=== PATIENT | female | born 1985 | race Caucasian/White ===

== ENCOUNTER 2019-07-16 11:40 | Emergency (ER) | payer MEDICAID, SELFPAY ==
[2019-07-16 11:44] VITALS: BMI 42.5
--- NOTE | 2019-07-16 11:48 | XR_ITS ---
WS: [id number] XR chest 1V portable [id number] REASON FOR EXAM: Fever and URI symptoms FINDINGS: The cardiac silhouette was normal. The lung hatch are well aerated. No pneumonia, pleural effusion, pulmonary edema, or mass effect. No osseous abnormalities. The hilum and apices are normal. XR/XR chest 1V portable [id number] IMPRESSION: No active cardiopulmonary changes.
[2019-07-16 11:49] VITALS: BP 129/97; PULSE 87; RESP 18; TEMP 36.4; O2SAT 97
--- NOTE | 2019-07-16 12:22 | W.ED.GENADLT ---
Documented by User: CHARLOTTE Dean 07/16/19 15:05 HPI - General Adult General: Chief complaint: General Medical Stated complaint: fever Time Seen by Provider: 07/16/19 11:45 History of Present Illness: HPI narrative: Patient is a 34-year-old female comes to the ED with a sore throat and generalized body aches. Patient states that symptoms started yesterday. She also has had fever and chills last night. Denies any chest pain, shortness of breath, cough, ear pain, nasal drainage or congestion, abdominal pain, nausea, vomiting, diarrhea, constipation, dysuria, hematuria. Associated symptoms: Deny chest pain, dyspnea, headache(s), nausea, rash, palpitations or vomiting Review of Systems General: Reports: 10 or more systems reviewed and unremarkable except in HPI and below Const: Reports: fever and body aches; Denies: chills or fatigue Eyes: Denies: change in vision or eye discomfort ENMT: Reports: throat pain and painful swallowing; Denies: nasal discharge or nasal congestion Card: Denies: chest pain, palpitations, edema, swelling of feet/ankles, shortness of breath on exertion or shortness of breath when lying down Resp: Denies: shortness of breath, productive cough or non-productive cough GI: Denies: abdominal pain, nausea, vomiting, diarrhea, constipation or blood in stool : Denies: flank pain, painful urination or blood in urine Musc: Denies: neck pain, back pain or extremity swelling Skin/Breast: Denies: rash or new lesion Neuro: Denies: headache, numbness in extremities or weakness in extremities PFS ED PFSH: Social History Smoking and tobacco status: never smoked Female Reproductive History: Date of last menstrual period: 06/20/19 Physical Exam Narrative: EXAM NARRATIVE: Patient is a 34-year-old female who is sitting comfortably in exam than on the room. She is showing no signs of acute respiratory distress or pain. Const: COMMON NORMALS: oriented x3 HENMT: COMMON NORMALS: normocephalic and TM's normal bilaterally HEAD & SCALP: normocephalic TYMPANIC MEMBRANE: TM's normal bilaterally MOUTH: oral and palatal mucosa normal THROAT: uvula midline, tonsils abnormal (swollen) left and posterior oropharynx abnormal edema and erythema; no exudates Neck/C-Spine: COMMON NORMALS: supple GENERAL: Yes normal visual inspection Lymph: LYMPHATIC: no lymphadenopathy noted Resp: COMMON NORMALS: normal respiratory effort, no retractions, no use of accessory muscles and clear to auscultation bilaterally AUSCULTATION: clear to auscultation bilaterally Cardio: COMMON NORMALS: regular rate, regular rhythm, S1 normal heart sound, S2 normal heart sound, no gallops, no clicks, no murmurs and peripheral pulses 2+ throughout RATE: regular rate RHYTHM: regular rhythm HEART SOUNDS: S1 normal and S2 normal PERIPHERAL PULSES: pulses 2+ throughout GI: COMMON NORMALS: normal to inspection, nondistended, normoactive bowel sounds, soft to palpation, non-tender and no masses PALPATION: Yes soft : COMMON NORMALS: Yes no CVA tenderness BLADDER/KIDNEY EXAM: Yes no CVA tenderness Back/Pelvis: COMMON NORMALS: no CVA tenderness Extremity: COMMON NORMALS: normal to inspection Neuro: COMMON NORMALS: oriented x3 and moves all extremities Skin: COMMON NORMALS: no rashes or lesions noted GENERAL SKIN EXAM: no rashes or lesions noted and dry skin Course Vital Signs: Vital signs: Vital Signs Temperature 97.6 F 07/16/19 13:46 Pulse Rate 87 07/16/19 14:46 Respiratory Rate 16 07/16/19 14:46 Blood Pressure 133/94 07/16/19 14:46 Pulse Oximetry 98 07/16/19 14:46 MDM - General Adult Lab Data: Attestation: I reviewed the patient's lab results. Labs: Lab Results 07/16/19 07/16/19 07/16/19 Range/Units 12:03 12:03 13:58 Monoscreen Negative (Negative) Influenza Type A A g Negative (Negative) POC Influenza B Ag Negative (Negative) Group A Strep Rapi d Negative (Negative) Imaging Data^: CXR: Attestation: I personally reviewed and interpreted this imaging study as follows: Radiologist's impression: [address] [address] XRay Report Signed Patient: Luz Lester Unit #: [id number] : 1985 Age/Sex: 34 / F ADM Date: 07/16/19 Loc: ER Room/Bed: Attending Dr: Ordering Provider/Ordering MD: Roel Walden Date of Service: 07/16/19 Procedure(s): XR chest 1V portable [id number] Accession Number(s): [id number] Report Number: [id number] WS: [id number] XR chest 1V portable [id number] REASON FOR EXAM: Fever and URI symptoms FINDINGS: The cardiac silhouette was normal. The lung hatch are well aerated. No pneumonia, pleural effusion, pulmonary edema, or mass effect. No osseous abnormalities. The hilum and apices are normal. XR/XR chest 1V portable [id number] IMPRESSION: No active cardiopulmonary changes. Dictated By: Robbi Erickson DO Signed By: Robbi Erickson DO Signed Date/Time: 07/16/19 120 DD/ 120 Discharge Plan Discharge Patient Disposition: Home, Self-Care Clinical Impression: Pharyngitis with viral syndrome Condition: Stable Prescriptions: No Action Midol 500-25 mg Tablet 1 tab PO PRN RF: 0 Discharge Orders: Discharge Order (Routine); Ordered 07/16/19 Ordered By: Roel Walden Referrals: Yareli Lozano DO [Primary Care Provider] - Discharge Diet: Regular Discharge Activity: Resume usual activity Patient Instructions: Pharyngitis (ED) Activity Restrictions/Additional Instructions: Follow-up with PCP in 7 days for reevaluation. Take ibuprofen or Tylenol for fever control. Drink plenty of fluids and stay hydrated. For sore throat can gargle salt water to help relieve symptoms. Return to the ED for any emergent problems. Discharge Date/Time: 07/16/19 14:47 Coding Level of Care Code ED Apartment Property Manager for Chg Fwd Exam Comprehensive Documented by User: Estella Martinez MD, [facility] [place] 07/16/19 23:59 HPI - General Adult General: Chief complaint: General Medical Stated complaint: fever Time Seen by Provider: 07/16/19 11:45 PFSH ED PFSH: Social History Smoking and tobacco status: never smoked Course Vital Signs: Vital signs: Vital Signs Temperature 97.6 F 07/16/19 13:46 Pulse Rate 87 07/16/19 14:46 Respiratory Rate 16 07/16/19 14:46 Blood Pressure 133/94 07/16/19 14:46 Pulse Oximetry 98 07/16/19 14:46 MDM - General Adult Lab Data: Labs: Lab Results 07/16/19 07/16/19 07/16/19 Range/Units 12:03 12:03 13:58 Monoscreen Negative (Negative) Influenza Type A A g Negative (Negative) POC Influenza B Ag Negative (Negative) Group A Strep Rapi d Negative (Negative) Discharge Plan Discharge Patient Disposition: Home, Self-Care Clinical Impression: Pharyngitis with viral syndrome Condition: Stable Prescriptions: No Action Midol 500-25 mg Tablet 1 tab PO PRN RF: 0 Discharge Orders: Discharge Order (Routine); Ordered 07/16/19 Ordered By: Roel Walden Referrals: Yareli Lozano DO [Primary Care Provider] - Discharge Diet: Regular Discharge Activity: Resume usual activity Patient Instructions: Pharyngitis (ED) Activity Restrictions/Additional Instructions: Follow-up with PCP in 7 days for reevaluation. Take ibuprofen or Tylenol for fever control. Drink plenty of fluids and stay hydrated. For sore throat can gargle salt water to help relieve symptoms. Return to the ED for any emergent problems. Discharge Date/Time: 07/16/19 14:47 Coding Level of Care Code ED Apartment Property Manager for Moog Fwd Exam Comprehensive
[2019-07-16 12:41] LABS: Rapid Strep A Test Negative (Negative)
[2019-07-16 12:55] LABS: Influenza A by IFA Negative (Negative)
[2019-07-16 12:56] LABS: Influenza B by IFA Negative (Negative)
[2019-07-16 13:46] VITALS: BP 144/97; PULSE 77; TEMP 36.4; O2SAT 99
[2019-07-16 14:18] LABS: Monoscreen Negative (Negative)
[2019-07-16 14:46] VITALS: BP 133/94; PULSE 87; RESP 16; O2SAT 98
== END 2019-07-16 14:47 | disposition home or self-care (01) ==
PROVIDERS: Emergency Provider Physician Assistant; Family Provider Family Medicine; PCP Family Medicine
DX: J02.9 Acute pharyngitis, unspecified (principal); B34.9 Viral infection, unspecified
CPT/HCPCS: 36415; 71045; 86308; 87081; 87804; 87880; 99282; 99283

== ENCOUNTER → 2019-12-07 14:08 | Outpatient (BNVA) | payer MEDICAID, SELFPAY | PROVIDERS: Family Provider Family Medicine; PCP Nurse Practitioner; Visit Provider Nurse Practitioner Women's Health | DX: N93.9 Abnormal uterine and vaginal bleeding, unspecified (principal); Z13.1 Encounter for screening for diabetes mellitus; Z12.4 Encounter for screening for malignant neoplasm of cervix | CPT/HCPCS: 83036; 84443; 84702; 85025; 88175 ==

== ENCOUNTER → 2019-12-12 14:43 | Outpatient (BNVA) | payer MEDICAID, SELFPAY | PROVIDERS: Family Provider Family Medicine; PCP Nurse Practitioner; Visit Provider Nurse Practitioner Women's Health | DX: N92.0 Excessive and frequent menstruation with regular cycle (principal); N83.02 Follicular cyst of left ovary; N83.01 Follicular cyst of right ovary | CPT/HCPCS: 76830 ==

== ENCOUNTER → 2020-06-21 11:41 | Outpatient (BNVA) | payer BC, MEDICAID, SELFPAY | PROVIDERS: Family Provider Family Medicine; PCP Nurse Practitioner; Visit Provider Nurse Practitioner Family | DX: J02.9 Acute pharyngitis, unspecified (principal); J06.9 Acute upper respiratory infection, unspecified | CPT/HCPCS: 87071; 87880 ==

== ENCOUNTER 2020-08-01 17:55 | Emergency (ER) | payer BC, MEDICAID, SELFPAY ==
[2020-08-01 18:03] VITALS: BP 161/103; PULSE 100; RESP 18; TEMP 36.2; O2SAT 100; BMI 41.3
--- NOTE | 2020-08-01 18:14 | ECG_ITS ---
[facility] Test Date: 2020-08-01 Pat Name: Luz Lester Department: Room: Gender: Female Net Mvc Developer: : 1985 Requested By: Stephanie Jacobs Order Number: [id number] Patric MD: Dwayne Bender M.D. Measurements Intervals [place] Rate: 89 P: 57 AK: 159 QRS: 64 QRSD: 97 T: 48 QT: 359 QTc: 439 Interpretive Statements SINUS RHYTHM INDETERMINATE AXIS INCOMPLETE RIGHT BUNDLE BRANCH BLOCK [90+ ms QRS DURATION, TERMINAL R IN V1/V2, 40+ ms S IN I/aVL/V4/V5/V6] Compared to ECG 08/31/2017 20:00:10 Indeterminate axis now present Incomplete right bundle-branch block now present Electronically Signed On 08-01-2020 20:56:54 COMPRESSOR STATION OPERATOR by Dwayne Bender M.D. [id number]
--- NOTE | 2020-08-01 18:14 | CTR_ITS ---
PROCEDURE INFORMATION: Exam: CT Head Without Contrast Exam date and time: 08/01/2020 6:15 PM Age: 35 years old Clinical indication: Other: Weakness TECHNIQUE: Imaging protocol: Computed tomography of the head without contrast. Total images: 198 Radiation optimization: All CT scans at this facility use at least one of these dose optimization techniques: automated exposure control; mA and/or kV adjustment per patient size (includes targeted exams where dose is matched to clinical indication); or iterative reconstruction. COMPARISON: No relevant prior studies available. RADIATION DOSE METRICS: Total DLP (mGy-cm): 799.76 FINDINGS: Brain: Normal. No hemorrhage. Unremarkable white matter. No mass effect. Cerebral ventricles: No ventriculomegaly. Bones/joints: Unremarkable. No acute fracture. Paranasal sinuses: Visualized sinuses are unremarkable. No fluid levels. Mastoid air cells: Visualized mastoid air cells are well aerated. Soft tissues: Unremarkable. CT/CT head wo con* [id number] IMPRESSION: No acute intracranial abnormality. Radiation Dose CTDIVOL = (mGy): DLP = 799.76 (mGy-cm)
--- NOTE | 2020-08-01 18:27 | W.ED.WEAKNES ---
HPI - Weakness General: Chief complaint: Weakness Stated complaint: SHAKING Time Seen by Provider: 08/01/20 18:09 Source: patient Mode of arrival: ambulatory Limitations: no limitations History of Present Illness: HPI Narrative: 35-year-old female who states today at 1 she is started feeling weak and shaky. She states that she went to her kids and was feeling better and then started having weakness again 330. States she is getting tics where she shakes and has tremors. She denies any headache. Denies any worsening peripheral factors. She denies any difficulty walking. She has had no difficulty speaking. Associated symptoms: Denies chest pain, chills, dysuria, easy bruising, fever(s), nausea or vomiting Review of Systems Const: Denies: fever(s), chills, body aches or change in appetite Eyes: Denies: blurry vision or eye discomfort ENMT: Denies: throat pain or dental pain Card: Denies: chest pain Resp: Denies: dyspnea GI: Denies: abdominal pain, nausea, vomiting or diarrhea : Denies: dysuria Musc: Denies: neck pain or back pain Skin/Breast: Denies: rash Neuro: Reports: weakness in extremities Psych: Denies: depression Brown/Lymph: Denies: easy bruising All/Imm: Denies: urticaria PFSH ED PFSH: Medical History (Updated 08/01/20 @ 20:21 by Stephanie Jacobs MD) History of hypertension Hypersomnia Low grade squamous intraepithelial lesion on cytologic smear of cervix (LGSIL) Muscle tension headache Obesity, morbid, BMI 40.0-49.9 Prediabetes Surgical History H/O section 1--04/25/[address] Peter Thompson at [facility] in [place], [place] 2-- 03/25/[address] Tristan Mcknight at [facility] in [place], [place] H/O tubal ligation (~03/25/11) Performed at time of section History of cholecystectomy (~07/2009) Laparoscopic. Performed at [facility] in [place], [place] Family History (Updated 04/17/20 @ 09:08 by Ioana Posadas LPN) Father Diabetes Hyperlipidemia Hypertension Grandfather No problems noted. Grandmother Hyperlipidemia Paternal grandmother Hypertension Paternal grandmother Diabetes Paternal grandmother Family/Other Family history of thyroid problem Paternal aunt Breast cancer Paternal great aunt Thyroid cancer Lung cancer Throat cancer Other Ovarian cancer Social History (Updated 04/17/20 @ 09:04 by Ioana Posadas LPN) Smoking and tobacco status: never smoked Alcohol intake: never Marital status: Number of children: 2 Current occupational status: unemployed Current gender identity: Female Additional social history: - Tobacco use: Denies Alcohol use: Denies Drug use: Denies Female Reproductive History: Date of last menstrual period: 06/20/19 Physical Exam Const: COMMON NORMALS: no acute distress, patient oriented x3 and healthy appearing HENMT: COMMON NORMALS: normocephalic and atraumatic HEAD & SCALP: normocephalic and atraumatic Eye: COMMON NORMALS: Equal, round and reactive pupils present and EOMs intact bilaterally PUPIL: Yes Equal, round and reactive pupils present Neck/C-Spine: COMMON NORMALS: full ROM and supple Chest: COMMONS NORMALS: normal inspection of the chest and normal palpation of entire chest wall Resp: COMMON NORMALS: normal respiratory effort, No retractions, No use of accessory muscles and clear to auscultation bilaterally AUSCULTATION: clear to auscultation bilaterally Cardio: COMMON NORMALS: regular rate, regular rhythm and No murmurs present (Cardio) RATE: regular rate RHYTHM: regular rhythm GI: COMMON NORMALS: Normal to inspection, nondistended, normoactive bowel sounds present, Soft to palpation, non-tender and no masses PALPATION: Yes Soft to palpation Extremity: COMMON NORMALS: normal to inspection and full ROM Neuro: COMMON NORMALS: patient oriented x3, moves all extremities and no focal motor deficits Psych: COMMON NORMALS: mental status grossly normal, Normal thought process present and cooperative THOUGHT PROCESS: Normal thought process present Skin: COMMON NORMALS: no rashes or lesions noted and no wounds GENERAL SKIN EXAM: no rashes or lesions noted Course Vital Signs: Vital signs: Vital Signs Temperature 97.1 F L 08/01/20 18:03 Pulse Rate 89 08/01/20 20:54 Respiratory Rate 18 08/01/20 20:54 Blood Pressure 145/99 08/01/20 20:54 Pulse Oximetry 98 08/01/20 20:54 MDM - Weakness MDM Narrative: Medical decision making narrative: Patient presents here with generalized weakness. She is well-appearing here and blood work and CT head are normal. She has no focal deficits and no signs of a stroke. Patient is stable for discharge and is to follow-up with PCP and return if worsening. Lab Data: Labs: Lab Results 08/01/20 08/01/20 08/01/20 Range/Units 18:37 18:37 19:30 WBC 11.6 H (4.0-10.0) 10^3/ uL RBC 4.69 (4.1-5.3) 10^6/u L Hgb 12.6 (11.5-15.3) g/dL Hct 40.0 (37.0-47.0) % MCV 85.3 (81-99) fL MCH 26.9 L (28.0-34.0) pg MCHC 31.5 (30.0-36.0) g/dL RDW 14.3 (12.1-15.1) % Plt Count 440 H (130-400) 10^3/c mm MPV 9.4 (7.4-10.4) fL Neut % (Auto) 70.3 % Lymph % (Auto) 17.8 % [place] % (Auto) 8.4 % Eos % (Auto) 1.7 % Baso % (Auto) 1.0 % Neut # (Auto) 8.14 H (1.8-7.7) 10^3/u L Lymph # (Auto) 2.1 (0.8-4.8) 10^3/u L [place] # (Auto) 1.0 H (0.2-0.9) 10^3/u L Eos # (Auto) 0.2 (0.0-0.8) 10^3/u L Baso # (Auto) 0.1 (0.0-0.1) 10^3/u L Nucleated RBC % (a uto) 0 % Nucleated RBCs # 0.0 /100WBC Sodium 138 (136-145) mmol/L Potassium 3.7 (3.5-5.1) mmol/L Chloride 102 (98-107) mmol/L Carbon Dioxide 25 (22-29) mmol/L Anion Gap 14.7 (5-19) BUN 8 (6-20) mg/dL Creatinine 0.7 (0.5-0.9) mg/dL GFR Calculation 95.2 (90-130) mL/min Glucose 115 (65-115) mg/dL Calculated Osmolal ity 285 (285-295) mOsm/k g Calcium 9.3 (8.5-10.5) mg/dL Total Bilirubin 0.2 (0.15-1.2) mg/dL AST 27 (0-32) U/L ALT 41 H (0-33) U/L Alkaline Phosphata se 71 (35-105) IU/L Total Protein 7.7 (6.6-8.7) g/dL Albumin 4.3 (3.5-5.2) g/dL Globulin 3.4 (1.3-4.6) g/dL HCG, Qual Negative (Negative) Urine Color (Yellow) Urine Appearance (CLEAR) Urine pH (5-7) Ur Specific Gravit y (1.005-1.030) Urine Protein (Negative) Urine Glucose (UA) (Normal) Urine Ketones (Negative) Urine Blood (Negative) Urine Nitrate (Negative) Urine Bilirubin (Negative) Urine Urobilinogen (Negative) mg/dL Ur Leukocyte Mariah ase (Negative) Urine RBC (0-2) /hpf Urine WBC (0-5) /hpf Ur Squamous Epith Cells (0-5) /hpf Amorphous Sediment Urine Bacteria (NONE) /hpf 08/01/20 Range/Units 19:30 WBC (4.0-10.0) 10^3/ uL RBC (4.1-5.3) 10^6/u L Hgb (11.5-15.3) g/dL Hct (37.0-47.0) % MCV (81-99) fL MCH (28.0-34.0) pg MCHC (30.0-36.0) g/dL RDW (12.1-15.1) % Plt Count (130-400) 10^3/c mm MPV (7.4-10.4) fL Neut % (Auto) % Lymph % (Auto) % [place] % (Auto) % Eos % (Auto) % Baso % (Auto) % Neut # (Auto) (1.8-7.7) 10^3/u L Lymph # (Auto) (0.8-4.8) 10^3/u L [place] # (Auto) (0.2-0.9) 10^3/u L Eos # (Auto) (0.0-0.8) 10^3/u L Baso # (Auto) (0.0-0.1) 10^3/u L Nucleated RBC % (a uto) % Nucleated RBCs # /100WBC Sodium (136-145) mmol/L Potassium (3.5-5.1) mmol/L Chloride (98-107) mmol/L Carbon Dioxide (22-29) mmol/L Anion Gap (5-19) BUN (6-20) mg/dL Creatinine (0.5-0.9) mg/dL GFR Calculation (90-130) mL/min Glucose (65-115) mg/dL Calculated Osmolal ity (285-295) mOsm/k g Calcium (8.5-10.5) mg/dL Total Bilirubin (0.15-1.2) mg/dL AST (0-32) U/L ALT (0-33) U/L Alkaline Phosphata se (35-105) IU/L Total Protein (6.6-8.7) g/dL Albumin (3.5-5.2) g/dL Globulin (1.3-4.6) g/dL HCG, Qual (Negative) Urine Color Straw (Yellow) Urine Appearance Clear (CLEAR) Urine pH 7 (5-7) Ur Specific Gravit y 1.005 (1.005-1.030) Urine Protein Neg (Negative) Urine Glucose (UA) Norm (Normal) Urine Ketones Negative (Negative) Urine Blood 2+ H (Negative) Urine Nitrate Negative (Negative) Urine Bilirubin Neg (Negative) Urine Urobilinogen Norm (Negative) mg/dL Ur Leukocyte Mariah ase Negative (Negative) Urine RBC 5-10 H (0-2) /hpf Urine WBC None (0-5) /hpf Ur Squamous Epith Cells 0-4 H (0-5) /hpf Amorphous Sediment Not Reportable Urine Bacteria Trace (NONE) /hpf Imaging Data^: CT Head: Attestation: I personally reviewed and interpreted this imaging study as follows: Radiologist's impression: [address] [address] [address] Scan Report Signed Patient: Luz Lesetr Unit #: [id number] : 1985 Age/Sex: 35 / F ADM Date: 08/01/20 Loc: ER Room/Bed: Attending Dr: Ordering Provider/Ordering MD: Stephanie Jacobs MD Date of Service: 08/01/20 Procedure(s): CT head wo con* [id number] Accession Number(s): [id number] Report Number: [id number] PROCEDURE INFORMATION: Exam: CT Head Without Contrast Exam date and time: 08/01/2020 6:15 PM Age: 35 years old Clinical indication: Other: Weakness TECHNIQUE: Imaging protocol: Computed tomography of the head without contrast. Total images: 198 Radiation optimization: All CT scans at this facility use at least one of these dose optimization techniques: automated exposure control; mA and/or kV adjustment per patient size (includes targeted exams where dose is matched to clinical indication); or iterative reconstruction. COMPARISON: No relevant prior studies available. RADIATION DOSE METRICS: Total DLP (mGy-cm): 799.76 FINDINGS: Brain: Normal. No hemorrhage. Unremarkable white matter. No mass effect. Cerebral ventricles: No ventriculomegaly. Bones/joints: Unremarkable. No acute fracture. Paranasal sinuses: Visualized sinuses are unremarkable. No fluid levels. Mastoid air cells: Visualized mastoid air cells are well aerated. Soft tissues: Unremarkable. CT/CT head wo con* [id number] IMPRESSION: No acute intracranial abnormality. Discharge Plan Discharge Patient Disposition: Home Clinical Impression: Weakness, Tremor Condition: Stable Prescriptions: No Action Midol 500-25 mg Tablet 1 tab PO PRN RF: 0 Discharge Orders: Discharge ED (Routine); Ordered 08/01/20 Ordered By: Stephanie Jacobs Referrals: Inés Clark FNP [Primary Care Provider] - 1-3 days Discharge Diet: Advance as tolerated Discharge Activity: Resume usual activity Patient Instructions: Weakness (ED) Coding Level of Care Code ED Shoe Planner for Chg Fwd Exam Comprehensive
[2020-08-01 18:51] VITALS: RESP 17
[2020-08-01 18:51] LABS: Basophils # 0.1 10^3/uL (0.0-0.1); Eosinophils # 0.2 10^3/uL (0.0-0.8); Eosinophils % 1.7 %; Hemoglobin 12.6 g/dL (11.5-15.3); Lymphocytes # 2.1 10^3/uL (0.8-4.8); Lymphocytes % 17.8 %; Mean Corpuscular HGB Conc 31.5 g/dL (30.0-36.0); Mean Corpuscular Hemoglobin 26.9 pg (28.0-34.0); Mean Corpuscular Volume 85.3 fL (81-99); Mean Platelet Volume 9.4 fL (7.4-10.4); Monocytes % 8.4 %; Neutrophils # 8.14 10^3/uL (1.8-7.7); Neutrophils % 70.3 %; Nucleated Red Blood Cells % 0 %; Platelet Count 440 10^3/cmm (130-400); Red Blood Count 4.69 10^6/uL (4.1-5.3); Red Cell Distribution Width 14.3 % (12.1-15.1); White Blood Count 11.6 10^3/uL (4.0-10.0)
[2020-08-01 19:10] LABS: Alanine Aminotransferase 41 U/L (0-33); Albumin Level 4.3 g/dL (3.5-5.2); Alkaline Phosphatase 71 IU/L (35-105); Anion Gap 14.7 (5-19); Aspartate Amino Transferase 27 U/L (0-32); Blood Urea Nitrogen 8 mg/dL (6-20); Calcium 9.3 mg/dL (8.5-10.5); Carbon Dioxide 25 mmol/L (22-29); Chloride 102 mmol/L (98-107); Creatinine Clr Calc Pharmacy 160.3001; Globulin 3.4 g/dL (1.3-4.6); Glomerular Filtration Rate 95.2 mL/min (90-130); Glucose 115 mg/dL (65-115); Osmolality Calculated 285 mOsm/kg (285-295); Potassium 3.7 mmol/L (3.5-5.1); Sodium 138 mmol/L (136-145); Total Bilirubin 0.2 mg/dL (0.15-1.2); Total Protein 7.7 g/dL (6.6-8.7)
[2020-08-01 19:49] VITALS: PULSE 92; RESP 17; O2SAT 97
[2020-08-01 19:53] LABS: HCG Qualitative Urine. Negative (Negative)
[2020-08-01 20:27] LABS: Add Urine Microscopic? YES; Bilirubin Urine Neg (Negative); Blood Urine 2+ (Negative); Glucose Urine UA Norm (Normal); Ketones Urine Negative (Negative); Leukocyte Esterase Urine Negative (Negative); Nitrate Urine Negative (Negative); Protein Urine Neg (Negative); Specific Gravity, Urine 1.005 (1.005-1.030); Urine Appearance Clear (CLEAR); Urine Color Straw (Yellow); Urobilinogen Urine Norm (Negative); pH Urine 7 (5-7)
[2020-08-01 20:31] LABS: Add Urine Culture? No; Bacteria Urine TRACE /hpf; Squamous Epithelial Cell Urine 0-4 /hpf (0-5)
[2020-08-01 20:54] VITALS: BP 145/99; PULSE 89; RESP 18; O2SAT 98
== END 2020-08-01 20:54 | disposition home or self-care (01) ==
PROVIDERS: Emergency Provider Emergency Medicine; PCP Nurse Practitioner
DX: R53.1 Weakness (principal); R25.1 Tremor, unspecified; I10 Essential (primary) hypertension
CPT/HCPCS: 70450; 80053; 81001; 81025; 85025; 93005; 99283

== ENCOUNTER → 2020-09-03 11:27 | Outpatient (BNVA) | payer BC, MEDICAID, SELFPAY | PROVIDERS: PCP Family Medicine Adult Medicine; Visit Provider Family Medicine Adult Medicine | DX: F41.8 Other specified anxiety disorders (principal); G47.00 Insomnia, unspecified; E66.01 Morbid (severe) obesity due to excess calories; Z78.9 Other specified health status | CPT/HCPCS: 84443 ==

== ENCOUNTER 2020-12-02 16:10 | Emergency (ER) | payer BC, MEDICAID, SELFPAY ==
[2020-12-02 16:15] VITALS: BP 172/108; PULSE 98; RESP 18; TEMP 36.6; O2SAT 97; BMI 41.3
--- NOTE | 2020-12-02 19:24 | USR_ITS ---
PROCEDURE INFORMATION: Exam: US Pelvis Complete, Transabdominal and US Duplex Artery or Vein, Ovaries, Limited Exam date and time: 12/02/2020 7:24 PM Age: 35 years old Clinical indication: Pelvic pain; Prior surgery; Surgery date: 6+ months; Surgery type: C-secs x 2; Patient HX: ; Additional info: Pelvic pain, vaginal bleeding TECHNIQUE: Imaging protocol: Real-time transabdominal pelvic ultrasound with image documentation. Real-time duplex ultrasound scan of the arterial or venous flow of the ovaries with B-mode, color Doppler flow and spectral waveform analysis. Complete Pelvis, Limited Duplex. COMPARISON: CT abdomen pelvis wo con [id number] 05/10/2019 1:06 PM FINDINGS: Uterus/cervix: Uterus measures 8.6 x 5.4 x 3.8 cm. The endometrial stripe measures 8 mm. Uterus is unremarkable in appearance. Right adnexa: The right ovary is unremarkable in appearance. Doppler evaluation of the right ovary was performed and demonstrates good arterial and venous flow. The right ovary measures 4.2 x 3.3 x 2.4 cm. Left adnexa: The left adnexa is unremarkable. The left ovary is not visualized. Free fluid: None. Bladder: Normal. Other findings: There is extensive bowel gas artifact. The exam is limited due to the patient's body habitus. The patient denied the endovaginal exam. US/US pelvic complete* [id number] IMPRESSION: 1. Exam is limited by the patient's body habitus. Uterus and right ovary are unremarkable. No right ovarian torsion. 2. The left ovary was not visualized.
--- NOTE | 2020-12-02 19:29 | W.ED.ABDPA2 ---
HPI - Abdominal Pain General: Chief Complaint: Abdominal Pain Stated Complaint: SEVERE LOWER ABD PAINS Time Seen by Provider: 12/02/20 19:10 History of Present Illness: HPI narrative: 5-year-old female presents with intense pelvic cramping. She states this is day 3 of her period. She has had some cramps and some bleeding which is normal for her. Earlier in the day, though, she passed a very large clot and possible tissue with significant pelvic pain. She still having significant pelvic pain although it is improved to some degree. No fever. No other discharge. Patient states she had a tubal. MD elicited complaint: abdominal pain Pertinent past history: none Onset (ago): hour(s) Pain Consistency: constant Location: Suprapubic Severity: moderate Quality: cramping and stabbing Radiation: none Exacerbating factors: nothing Relieving factors: nothing Associated Symptoms: Denies change in bowel habits, fever(s), hematochezia, hematuria, hematemesis and vomiting Related Data: Date of Last Menstrual Period: 11/29/20 Review of Systems Const: Denies: fever(s) Card: Denies: chest pain Resp: Denies: dyspnea, productive cough or non-productive cough GI: Denies: vomiting, hematemesis, change in bowel habits or hematochezia : Reports: vaginal bleeding and change in menstrual flow; Denies: hematuria, vaginal odor or vaginal discharge Skin/Breast: Denies: rash PFSH ED PFSH: Medical History (Updated 12/02/20 @ 21:37 by Jona Gottlieb DO) History of hypertension Hypersomnia Low grade squamous intraepithelial lesion on cytologic smear of cervix (LGSIL) Muscle tension headache No pertinent past medical history neghx: htn,dm,thyroid,dvt/pe Obesity, morbid, BMI 40.0-49.9 Prediabetes Surgical History H/O section 1--04/25/[address] Peter Thompson at [facility] in [place], [place] 2-- 03/25/[address] Tristan Mcknight at [facility] in [place], [place] H/O tubal ligation (~03/25/11) Performed at time of section History of cholecystectomy (~07/2009) Laparoscopic. Performed at [facility] in [place], [place] Family History Father Diabetes Hyperlipidemia Hypertension Grandfather No problems noted. Grandmother Hyperlipidemia Paternal grandmother Hypertension Paternal grandmother Diabetes Paternal grandmother Family/Other Family history of thyroid problem Paternal aunt Breast cancer Paternal great aunt Thyroid cancer Lung cancer Throat cancer Other Ovarian cancer Social History Smoking and tobacco status: never smoked Alcohol intake: never Marital status: Number of children: 2 Current occupational status: unemployed Current gender identity: Female Additional social history: - Tobacco use: Denies Alcohol use: Denies Drug use: Denies Female Reproductive History: Date of last menstrual period: 11/29/20 Physical Exam Const: GENERAL APPEARANCE: well developed ORIENTATION/CONSCIOUSNESS: Yes oriented to person, Yes oriented to place and Yes oriented to time HENMT: COMMON NORMALS: normocephalic, external ears normal and Normal external nose present HEAD & SCALP: normocephalic FACE & SINUS: normal facial exam NOSE: Normal external nose present and No nasal discharge present EXTERNAL EAR: Yes external ears normal Eye: COMMON NORMALS: Equal, round and reactive pupils present, EOMs intact bilaterally and conjunctivae normal EYELID: eyelids normal CONJUNCTIVA: Yes conjunctivae normal PUPIL: Yes Equal, round and reactive pupils present Neck/C-Spine: GENERAL: No tracheal deviation Chest: COMMONS NORMALS: normal inspection of the chest CHEST: No tenderness Resp: COMMON NORMALS: clear to auscultation bilaterally EFFORT & INSPECTION: No tachypneic, No respiratory distress, No retractions, No uses accessory muscles and No tracheal deviation AUSCULTATION: clear to auscultation bilaterally, no rhonchi, no wheezes and lung sounds not diminished Cardio: COMMON NORMALS: regular rate and regular rhythm RATE: regular rate RHYTHM: regular rhythm HEART SOUNDS: no murmurs PERIPHERAL PULSES: radial pulses present GI: INSPECTION: No abdominal distension AUSCULTATION: No Hyperactive bowel sounds present and No Hypoactive bowel sounds present PALPATION: Yes Tenderness to palpation present (GI) (suprapubic), No Guarding due to palpation present (GI) and No Rigid due to palpation PERCUSSION: no dullness to percussion and no tympanic to percussion Neuro: SENSORIUM/ORIENTATION: Yes oriented to person, Yes oriented to place and Yes oriented to time Psych: COMMON NORMALS: mental status grossly normal Skin: COMMON NORMALS: no rashes or lesions noted GENERAL SKIN EXAM: no rashes or lesions noted Course Vital Signs: Vital signs: Vital Signs Temperature 97.9 F 12/02/20 16:15 Pulse Rate 84 12/02/20 22:00 Respiratory Rate 18 12/02/20 16:15 Blood Pressure 142/88 12/02/20 22:00 Pulse Oximetry 97 12/02/20 16:15 MDM - Abdominal Pain MDM Narrative: Medical decision making narrative: 35-year-old female with intense pelvic pain that is now improved. No vaginal discharge. She is on her period, and experienced some heavier bleeding today with clots. Ultrasound does not reveal any concerning debris in the uterus. Ovaries have blood flow. The patient declined a transvaginal exam that would be more sensitive for other pathology. Her white blood cell count is 11 with a normal differential. Other labs are benign. She will be allowed home. Lab Data: Labs: Lab Results 12/02/20 12/02/20 12/02/20 Range/Units 19:33 20:35 20:35 WBC 11.0 H (4.0-10.0) 10^3/ uL RBC 4.90 (4.1-5.3) 10^6/u L Hgb 13.3 (11.5-15.3) g/dL Hct 42.0 (37.0-47.0) % MCV 85.7 (81-99) fL MCH 27.1 L (28.0-34.0) pg MCHC 31.7 (30.0-36.0) g/dL RDW 14.5 (12.1-15.1) % Plt Count 437 H (130-400) 10^3/c mm MPV 9.7 (7.4-10.4) fL Neut % (Auto) 69.2 % Lymph % (Auto) 19.9 % [place] % (Auto) 7.9 % Eos % (Auto) 1.9 % Baso % (Auto) 0.6 % Neut # (Auto) 7.62 (1.8-7.7) 10^3/u L Lymph # (Auto) 2.2 (0.8-4.8) 10^3/u L [place] # (Auto) 0.9 (0.2-0.9) 10^3/u L Eos # (Auto) 0.2 (0.0-0.8) 10^3/u L Baso # (Auto) 0.1 (0.0-0.1) 10^3/u L Nucleated RBC % (a uto) 0 % Nucleated RBCs # 0.0 /100WBC Sodium 143 (136-145) mmol/L Potassium 3.8 (3.5-5.1) mmol/L Chloride 105 (98-107) mmol/L Carbon Dioxide 25 (22-29) mmol/L Anion Gap 16.8 (5-19) BUN 8 (6-20) mg/dL Creatinine 0.8 (0.5-0.9) mg/dL GFR Calculation 81.6 L (90-130) mL/min Glucose 116 H (65-115) mg/dL Calculated Osmolal ity 295 (285-295) mOsm/k g Calcium 9.4 (8.5-10.5) mg/dL Total Bilirubin 0.5 (0.15-1.2) mg/dL AST 22 (0-32) U/L ALT 31 (0-33) U/L Alkaline Phosphata se 94 (35-105) IU/L Total Protein 7.6 (6.6-8.7) g/dL Albumin 4.3 (3.5-5.2) g/dL Globulin 3.3 (1.3-4.6) g/dL Lipase 31 (13-60) U/L HCG, Qual (Negative) Urine Color Other (Yellow) Urine Appearance Clear (CLEAR) Urine pH 5 (5-7) Ur Specific Gravit y 1.025 (1.005-1.030) Urine Protein 1+ H (Negative) Urine Glucose (UA) Norm (Normal) Urine Ketones Negative (Negative) Urine Blood 3+ H (Negative) Urine Nitrate Negative (Negative) Urine Bilirubin Neg (Negative) Urine Urobilinogen 1 H (Negative) mg/dL Ur Leukocyte Mariah ase Trace H (Negative) Urine RBC 5-10 H (0-2) /hpf Urine WBC 10-15 H (0-5) /hpf Ur Squamous Epith Cells 5-10 H (0-5) /hpf Amorphous Sediment Not Reportable Urine Bacteria 2+ H (NONE) /hpf Urine Mucus 1+ /hpf 12/02/20 Range/Units 20:35 WBC (4.0-10.0) 10^3/ uL RBC (4.1-5.3) 10^6/u L Hgb (11.5-15.3) g/dL Hct (37.0-47.0) % MCV (81-99) fL MCH (28.0-34.0) pg MCHC (30.0-36.0) g/dL RDW (12.1-15.1) % Plt Count (130-400) 10^3/c mm MPV (7.4-10.4) fL Neut % (Auto) % Lymph % (Auto) % [place] % (Auto) % Eos % (Auto) % Baso % (Auto) % Neut # (Auto) (1.8-7.7) 10^3/u L Lymph # (Auto) (0.8-4.8) 10^3/u L [place] # (Auto) (0.2-0.9) 10^3/u L Eos # (Auto) (0.0-0.8) 10^3/u L Baso # (Auto) (0.0-0.1) 10^3/u L Nucleated RBC % (a uto) % Nucleated RBCs # /100WBC Sodium (136-145) mmol/L Potassium (3.5-5.1) mmol/L Chloride (98-107) mmol/L Carbon Dioxide (22-29) mmol/L Anion Gap (5-19) BUN (6-20) mg/dL Creatinine (0.5-0.9) mg/dL GFR Calculation (90-130) mL/min Glucose (65-115) mg/dL Calculated Osmolal ity (285-295) mOsm/k g Calcium (8.5-10.5) mg/dL Total Bilirubin (0.15-1.2) mg/dL AST (0-32) U/L ALT (0-33) U/L Alkaline Phosphata se (35-105) IU/L Total Protein (6.6-8.7) g/dL Albumin (3.5-5.2) g/dL Globulin (1.3-4.6) g/dL Lipase (13-60) U/L HCG, Qual Negative (Negative) Urine Color (Yellow) Urine Appearance (CLEAR) Urine pH (5-7) Ur Specific Gravit y (1.005-1.030) Urine Protein (Negative) Urine Glucose (UA) (Normal) Urine Ketones (Negative) Urine Blood (Negative) Urine Nitrate (Negative) Urine Bilirubin (Negative) Urine Urobilinogen (Negative) mg/dL Ur Leukocyte Mariah ase (Negative) Urine RBC (0-2) /hpf Urine WBC (0-5) /hpf Ur Squamous Epith Cells (0-5) /hpf Amorphous Sediment Urine Bacteria (NONE) /hpf Urine Mucus /hpf Discharge Plan Discharge Patient Disposition: Home Clinical Impression: Abnormal uterine bleeding (AUB) Condition: Stable Prescriptions: No Action buspirone 7.5 mg tablet 7.5 mg PO BID Qty: 60 RF: 3 propranolol 20 mg tablet 20 mg PO BID RF: 0 Discharge Orders: Discharge ED (Routine); Ordered 12/02/20 Ordered By: Jona Gottlieb Referrals: Nikhil Julian MD [Primary Care Provider] - 1-3 days Discharge Diet: Advance as tolerated Discharge Activity: Increase activity as tolerated Activity Restrictions/Additional Instructions: Return for fever greater than 100, passing large clots, soaking 1 pad per hour for more than 2 to 3 hours, worsening pain, vomiting liquids or medications, any other concerning symptoms. 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
[2020-12-02 19:53] VITALS: BP 152/90
[2020-12-02 19:56] LABS: Add Urine Microscopic? YES; Bilirubin Urine Neg (Negative); Blood Urine 3+ (Negative); Glucose Urine UA Norm (Normal); Ketones Urine Negative (Negative); Leukocyte Esterase Urine Trace (Negative); Nitrate Urine Negative (Negative); Protein Urine 1+ (Negative); Specific Gravity, Urine 1.025 (1.005-1.030); Urine Appearance Clear (CLEAR); Urine Color Other (Yellow); Urobilinogen Urine 1 mg/dL (Negative); pH Urine 5 (5-7)
[2020-12-02 19:57] LABS: Add Urine Culture? Yes; Bacteria Urine 2+ /hpf; Mucus Urine 1+ /hpf
[2020-12-02] MEDS: ibuprofen 600 mg Tablet PO (20:45)
[2020-12-02 21:00] LABS: Basophils # 0.1 10^3/uL (0.0-0.1); Basophils % 0.6 %; Eosinophils # 0.2 10^3/uL (0.0-0.8); Eosinophils % 1.9 %; Hemoglobin 13.3 g/dL (11.5-15.3); Lymphocytes # 2.2 10^3/uL (0.8-4.8); Lymphocytes % 19.9 %; Mean Corpuscular HGB Conc 31.7 g/dL (30.0-36.0); Mean Corpuscular Hemoglobin 27.1 pg (28.0-34.0); Mean Corpuscular Volume 85.7 fL (81-99); Mean Platelet Volume 9.7 fL (7.4-10.4); Monocytes # 0.9 10^3/uL (0.2-0.9); Monocytes % 7.9 %; Neutrophils # 7.62 10^3/uL (1.8-7.7); Neutrophils % 69.2 %; Nucleated Red Blood Cells % 0 %; Platelet Count 437 10^3/cmm (130-400); Red Cell Distribution Width 14.5 % (12.1-15.1)
[2020-12-02 21:04] LABS: HCG, Serum Qual Negative (Negative)
[2020-12-02 21:09] LABS: Alanine Aminotransferase 31 U/L (0-33); Albumin Level 4.3 g/dL (3.5-5.2); Alkaline Phosphatase 94 IU/L (35-105); Anion Gap 16.8 (5-19); Aspartate Amino Transferase 22 U/L (0-32); Blood Urea Nitrogen 8 mg/dL (6-20); Calcium 9.4 mg/dL (8.5-10.5); Carbon Dioxide 25 mmol/L (22-29); Chloride 105 mmol/L (98-107); Globulin 3.3 g/dL (1.3-4.6); Glomerular Filtration Rate 81.6 mL/min (90-130); Glucose 116 mg/dL (65-115); Lipase 31 U/L (13-60); Osmolality Calculated 295 mOsm/kg (285-295); Potassium 3.8 mmol/L (3.5-5.1); Sodium 143 mmol/L (136-145); Total Bilirubin 0.5 mg/dL (0.15-1.2); Total Protein 7.6 g/dL (6.6-8.7)
[2020-12-02 22:00] VITALS: BP 142/88; PULSE 84
== END 2020-12-02 21:50 | disposition home or self-care (01) ==
PROVIDERS: Nurse Practitioner Family; Emergency Provider Emergency Medicine; PCP Family Medicine Adult Medicine
DX: N93.9 Abnormal uterine and vaginal bleeding, unspecified (principal); I10 Essential (primary) hypertension
CPT/HCPCS: 76856; 80053; 81001; 83690; 84703; 85025; 87077; 87086; 87186; 87491; 87591; 93976; 99283

== ENCOUNTER → 2021-03-04 10:06 | Outpatient (BNVA) | payer BC, MEDICAID, SELFPAY | PROVIDERS: PCP Family Medicine Adult Medicine; Referring Provider Family Medicine Adult Medicine; Visit Provider Specialist | DX: R25.1 Tremor, unspecified (principal); G43.711 Chronic migraine without aura, intractable, with status migrainosus; R56.9 Unspecified convulsions; F41.9 Anxiety disorder, unspecified | CPT/HCPCS: 99204 ==

== ENCOUNTER → 2021-04-17 11:43 | Outpatient (BNVA) | payer BC, MEDICAID, SELFPAY | PROVIDERS: PCP Family Medicine Adult Medicine; Visit Provider Nurse Practitioner Family | DX: Z20.822 Contact with and (suspected) exposure to COVID-19 (principal) | CPT/HCPCS: 87635 ==

== ENCOUNTER → 2021-05-08 10:33 | Outpatient (BNVA) | payer BC, MEDICAID, SELFPAY | PROVIDERS: PCP Family Medicine Adult Medicine; Visit Provider Specialist | DX: G43.019 Migraine without aura, intractable, without status migrainosus (principal); R25.1 Tremor, unspecified; F41.9 Anxiety disorder, unspecified | CPT/HCPCS: 99213; 99214 ==

== ENCOUNTER → 2021-05-20 13:33 | Outpatient (BNVA) | payer BC, MEDICAID, SELFPAY | PROVIDERS: PCP Family Medicine Adult Medicine; Referring Provider Specialist; Visit Provider Specialist | DX: R56.9 Unspecified convulsions (principal); R25.1 Tremor, unspecified | CPT/HCPCS: 95816 ==

== ENCOUNTER → 2021-08-07 14:44 | Outpatient (BNVA) | payer BC, MEDICAID, SELFPAY | PROVIDERS: PCP Family Medicine Adult Medicine; Visit Provider Specialist | DX: G43.019 Migraine without aura, intractable, without status migrainosus (principal); R56.9 Unspecified convulsions; F41.9 Anxiety disorder, unspecified; R25.1 Tremor, unspecified; E66.01 Morbid (severe) obesity due to excess calories; Z68.41 Body mass index [BMI] 40.0-44.9, adult; R55 Syncope and collapse | CPT/HCPCS: 99214 ==

== ENCOUNTER → 2021-08-13 16:46 | Outpatient (BNVA) | payer BC, MEDICAID, SELFPAY | PROVIDERS: PCP Family Medicine Adult Medicine; Visit Provider Nurse Practitioner | DX: M79.641 Pain in right hand (principal) | CPT/HCPCS: 73130 ==

== ENCOUNTER → 2021-08-15 12:14 | Outpatient (BNVA) | payer BC, MEDICAID, SELFPAY | PROVIDERS: PCP Family Medicine Adult Medicine; Visit Provider Internal Medicine | DX: R00.2 Palpitations (principal); I49.1 Atrial premature depolarization; R00.0 Tachycardia, unspecified | CPT/HCPCS: 93270 ==

== ENCOUNTER 2021-09-05 09:02 | Outpatient (CLI) | payer BC, MEDICAID, SELFPAY ==
--- NOTE | 2021-09-05 09:30 | USCV_ITS ---
Luz Lester Age: 36 Gender: F : 1985 Exam Date: 09/05/2021 09:32 Ordering Phys: Kenzie Paz MD Technologist: Exam Location: [facility] [place] Indication: palp BP: 134 / 76 HR: 82 Rhythm: Sinus Technical Quality: Adequate MEASUREMENTS (Male / Female) Normal Values 2D ECHO LV Diastolic Diameter PLAX 3.8 cm 4.2 - 5.9 / 3.9 - 5.3 cm LV Systolic Diameter PLAX 2.1 cm IVS Diastolic Thickness 0.9 cm 0.6 - 1.0 / 0.6 - 0.9 cm IVS Systolic Thickness 1.4 cm LVPW Diastolic Thickness 1.1 cm 0.6 - 1.0 / 0.6 - 0.9 cm LVPW Systolic Thickness 1.1 cm LVOT Diameter 2.1 cm LV Ejection Fraction 2D Teich 76.1 % LV Ejection Fraction MOD 2C 72.0 % LV Ejection Fraction 2C AL 71.7 % LA Diameter 3.6 cm LA Width 3.7 cm Aorta at Sinotubular Diameter 3.0 cm M-MODE LV Diastolic Diameter MM 4.6 cm 4.2 - 5.9 / 3.9 - 5.3 cm LV Systolic Diameter MM 2.7 cm LV Ejection Fraction MM Teich 71.6 % IVS Diastolic Thickness MM 1.1 cm 0.6 - 1.0 / 0.6 - 0.9 cm IVS Systolic Thickness MM 1.7 cm LVPW Diastolic Thickness MM 1.2 cm 0.6 - 1.0 / 0.6 - 0.9 cm LVPW Systolic Thickness MM 1.9 cm RV Diastolic Diameter MM 1.7 cm Aortic Annulus Diameter 3.6 cm LA Ao Ratio MM 1.0 MV E Point Septal Separation 0.7 cm DOPPLER AV Peak Velocity 119.0 cm/s LVOT Peak Velocity 108.0 cm/s AV Area Cont Eq vti 3.4 cm squared AV Area Cont Eq pk 3.2 cm squared MV Area PHT 5.0 cm squared Mitral E to A Ratio 0.9 MV E' Velocity 36.5 cm/s Mitral E to MV E' Ratio 8.3 Mitral E to LV E' Lateral Ratio 8.4 Mitral E to LV E' Septal Ratio 8.3 TR Peak Velocity 158.0 cm/s TR Peak Gradient 10.0 mmHg TV Peak E Velocity 97.0 cm/s Right Atrial Pressure 3.0 mmHg Pulmonary Artery Systolic Pressu 13.0 mmHg PV Peak Velocity 90.0 cm/s FINDINGS Left Ventricle Normal left ventricular size and systolic function, EF 63 %. No regional wall motion abnormalities. Right Ventricle The right ventricle is normal in size and function. Right Atrium The right atrium is normal in size. Left Atrium The left atrium is normal in size. Mitral Valve Trace mitral valve regurgitation. Aortic Valve Structurally normal aortic valve without significant sclerosis or stenosis. There is no aortic regurgitation. Tricuspid Valve Structurally normal tricuspid valve without significant stenosis or regurgitation. Pulmonary artery systolic pressure is normal. Pulmonic Valve Pulmonic valve not well visualized. Pericardium Normal pericardium without effusion. Aorta Normal ascending aorta dimension. CONCLUSIONS Normal left ventricular size and systolic function, EF 63 %. No regional wall motion abnormalities. Normal cardiac chamber sizes. Trace mitral valve regurgitation. No significant stenotic or regurgitant lesions. There is no pericardial effusion. There are no intracardiac masses. No previous study is available for comparison. Dr Dwayne Bender MD FAC (Electronically Signed) Final Date: 06 September 2021 08:41 S
== END 2021-09-05 09:03 | disposition home or self-care (01) ==
LOC: RAD 09:04
PROVIDERS: PCP Family Medicine Adult Medicine; Visit Provider Specialist
DX: R00.2 Palpitations (principal); I34.0 Nonrheumatic mitral (valve) insufficiency
CPT/HCPCS: 93306

== ENCOUNTER → 2021-10-08 09:13 | Outpatient (BNVA) | payer BC, MEDICAID, SELFPAY | PROVIDERS: PCP Family Medicine Adult Medicine; Referring Provider Specialist; Visit Provider Specialist | DX: R56.9 Unspecified convulsions (principal); F17.200 Nicotine dependence, unspecified, uncomplicated | CPT/HCPCS: 95816 ==

== ENCOUNTER → 2021-12-10 17:02 | Outpatient (BNVA) | payer BC, MEDICAID, SELFPAY | PROVIDERS: PCP Family Medicine Adult Medicine; Visit Provider Registered Nurse Neonatal Intensive Care | DX: R10.9 Unspecified abdominal pain (principal) | CPT/HCPCS: 81000 ==

== ENCOUNTER → 2022-01-01 15:08 | Outpatient (BNVA) | payer BC, MEDICAID, SELFPAY | PROVIDERS: PCP Family Medicine Adult Medicine; Visit Provider Emergency Medicine | DX: R07.9 Chest pain, unspecified (principal) | CPT/HCPCS: 71046 ==

== ENCOUNTER 2022-02-03 11:21 | Emergency (ER) | payer BC, MEDICAID, SELFPAY ==
[2022-02-03 11:30] VITALS: BP 149/98; PULSE 89; RESP 16; TEMP 36.6; O2SAT 96; BMI 41.3
--- NOTE | 2022-02-03 11:49 | W.ED.GENADLT ---
HPI - General Adult General: Chief complaint: General Medical Stated complaint: Sinus bothering her Time Seen by Provider: 02/03/22 11:41 History of Present Illness: 37 yo female patient presents to ER stating she has her yearly sinus infection. Pt states she has sinus pressure an headache x2 days. Pt states she always needs antibiotics and wants to get them started before it progressives. Pt dnies any vision changes or fever. Pt states this headache is normal for her sinus infection. Pt denies any neck pain, chest pain or SOB Associated symptoms: Deny chest pain, confusion, diaphoresis, dyspnea, headache(s), malaise, nausea, rash, palpitations, syncope or vomiting Review of Systems Const: Denies: fever(s), chills, body aches, change in appetite, change in weight, fatigue, malaise or diaphoresis Eyes: Denies: change in vision, blurry vision, blind spots, photophobia, eye discomfort, eye discharge, eye redness, floaters or seeing flashes ENMT: Reports: other (bilateral max sinus tenderness as well as frontal); Denies: throat pain, uvular edema, enlarged tonsils, odynophagia, hoarseness, mouth pain, swelling of lips/tongue, oral sores, bleeding gums, dental pain, dry mouth, ear or mastoid pain, ear discharge, change in hearing, tinnitus, disequilibrium, nasal discharge, nasal congestion, post nasal drip or sinus pain Card: Denies: chest pain, palpitations, irregular heart rhythm, edema, swelling of feet/ankles, lightheadedness, syncope, pre-syncope, dyspnea on exertion, orthopnea, leg pain with exertion or acrocyanosis Resp: Denies: dyspnea, productive cough, non-productive cough, wheezing, stridor, pain on inspiration, change in phlegm color, hemoptysis or chest congestion GI: Denies: abdominal pain, nausea, vomiting, hematemesis, dysphagia, diarrhea, constipation, GI cramping, change in bowel habits or rectal pain : Denies: flank pain, difficulty voiding, dysuria, urinary frequency, urinary urgency, urinary hesitancy or hematuria Musc: Denies: neck pain, back pain, extremity pain, extremity swelling, joint pain, joint swelling, joint redness, joint warmth or deformity Skin/Breast: Denies: rash, pruritus, erythema, sores, new lesions, changes in skin color or dry skin Neuro: Denies: headache(s), numbness in extremities, weakness in extremities, sensory changes, lack of coordination, difficulty walking, frequent falls, dizziness, vertigo, confusion, behavioral changes, Slurred speech present, difficulty communicating thoughts or seizure-like activity Psych: Denies: anxiety, depression, suicidal ideation or homicidal ideation Endo: Denies: polyuria, polydipsia, tired all the time, cold intolerance, excessive sweating, flushing, hot flashes or heat intolerance Brown/Lymph: Denies: easy bruising, easy bleeding, petechiae, purpura, enlarged lymph nodes or tender lymph nodes All/Imm: Denies: urticaria, throat swelling, tongue swelling, facial swelling, acute wheezing or itchy eyes PFSH ED PFSH: Medical History Allergic rhinitis due to allergen History of hypertension Hypersomnia Low grade squamous intraepithelial lesion on cytologic smear of cervix (LGSIL) Muscle strain of right shoulder region Muscle tension headache No pertinent past medical history neghx: htn,dm,thyroid,dvt/pe Obesity, morbid, BMI 40.0-49.9 Prediabetes Surgical History H/O section 1--04/25/[address] Peter Thompson at [facility] in [place], [place] 2-- 03/25/[address] Tristan Mcknight at [facility] in [place], [place] H/O tubal ligation (~03/25/11) Performed at time of section History of cholecystectomy (~07/2009) Laparoscopic. Performed at [facility] in [place], [place] Family History Father Diabetes Hyperlipidemia Hypertension Grandfather No problems noted. Grandmother Hyperlipidemia Paternal grandmother Hypertension Paternal grandmother Diabetes Paternal grandmother Family/Other Family history of thyroid problem Paternal aunt Breast cancer Paternal great aunt Thyroid cancer Lung cancer Throat cancer Other Ovarian cancer Social History Smoking and tobacco status: never smoked Alcohol intake: never Marital status: Number of children: 2 Current occupational status: unemployed History of recent travel: No Current gender identity: Female Additional social history: - Tobacco use: Denies Alcohol use: Denies Drug use: Denies Female Reproductive History: Date of last menstrual period: 11/29/20 Physical Exam Const: COMMON NORMALS: no acute distress, average body habitus, patient oriented x3, no limitations, healthy appearing, alert and well nourished HENMT: COMMON NORMALS: normocephalic, atraumatic, hearing grossly normal bilaterally, external ears normal, EAC's normal, TM's normal bilaterally, Normal external nose present, Normal nasal mucous membranes and turbinates present, moist oral mucous membranes, oropharynx normal, dentition normal and gingiva normal HEAD & SCALP: normocephalic and atraumatic FACE & SINUS: normal facial exam and sinus tenderness frontal and maxillary NOSE: Normal external nose present and Normal nasal mucous membranes and turbinates present EXTERNAL EAR: Yes external ears normal EXTERNAL AUDITORY CANAL: EAC's normal TYMPANIC MEMBRANE: TM's normal bilaterally THROAT: no uvular edema Neck/C-Spine: COMMON NORMALS: full ROM, no lymphadenopathy, supple, no meningeal signs, no JVD, Thyroid normal and No carotid bruits THYROID: Thyroid normal Chest: COMMONS NORMALS: normal inspection of the chest and normal palpation of entire chest wall Resp: COMMON NORMALS: normal respiratory effort, No retractions, No use of accessory muscles and clear to auscultation bilaterally AUSCULTATION: clear to auscultation bilaterally Cardio: COMMON NORMALS: no JVD, regular rate and regular rhythm RATE: regular rate RHYTHM: regular rhythm Neuro: COMMON NORMALS: patient oriented x3, CN's II-XII intact bilaterally, moves all extremities, no focal motor deficits, no sensory deficits noted and gait normal SENSORIUM/ORIENTATION: Yes alert MENINGEAL SIGNS: Yes no meningeal signs Course Vital Signs: Vital signs: Vital Signs Temperature 98 F 02/03/22 11:30 Pulse Rate 89 02/03/22 11:30 Respiratory Rate 16 02/03/22 11:30 Blood Pressure 149/98 02/03/22 11:30 Pulse Oximetry 96 02/03/22 11:30 Oxygen Delivery Me thod 02/03/22 11:[address] [facility] - General Adult Medical Decision Making Patient is well-appearing nontoxic in no acute distress.37 yo female patient presents to ER stating she has her yearly sinus infection. Pt states she has sinus pressure an headache x2 days. Pt states she always needs antibiotics and wants to get them started before it progressives. Pt dnies any vision changes or fever. Pt states this headache is normal for her sinus infection. Pt denies any neck pain, chest pain or SOB patient does have tenderness to her frontal and maxillary sinuses. Lungs are clear to auscultate there are no other concerning findings I will start patient on Z-Pranav as she states this is the only antibiotic that will help. Discussed with patient home cares return as well as return precautions. Patient is medically cleared and appropriate for discharge Discharge Plan Discharge Condition: Stable Prescriptions: No Action ibuprofen 600 mg tablet 600 mg PO Q8H PRN (Reason: pain) Qty: 30 0RF Zyrtec 10 mg Tablet 10 mg PO DAILY PRN (Reason: Allergy Symptoms) Tylenol Ex Str Rapid Release 500 mg Tablet 500 mg PO Q6H PRN (Reason: Pain) fluticasone propionate 50 mcg/actuation spray,suspension 1 spray intranasal BID PRN (Reason: Allergy Symptoms) Referrals: Nikhil Julian MD [Primary Care Provider] - Coding Level of Care Code ED Warp Yarn Sorter for Ramona Morse
[2022-02-03 12:17] VITALS: BP 124/78; PULSE 78; RESP 16; O2SAT 98
== END 2022-02-03 12:18 | disposition home or self-care (01) ==
PROVIDERS: Emergency Provider Registered Nurse; PCP Family Medicine Adult Medicine
DX: R51.9 Headache, unspecified (principal); I10 Essential (primary) hypertension
CPT/HCPCS: 99283

== ENCOUNTER 2022-04-23 18:43 | Emergency (ER) | payer BC, MEDICAID, SELFPAY ==
[2022-04-23 19:05] VITALS: BP 166/104; PULSE 90; RESP 14; TEMP 36.8; O2SAT 99; BMI 39.1
[2022-04-23 19:08] LABS: Basophils # 0.1 10^3/uL (0.0-0.1); Basophils % 0.8 %; Eosinophils # 0.2 10^3/uL (0.0-0.8); Eosinophils % 2.5 %; Hematocrit 40.1 % (37.0-47.0); Hemoglobin 13.1 g/dL (11.5-15.3); Lymphocytes # 2.3 10^3/uL (0.8-4.8); Lymphocytes % 25.4 %; Mean Corpuscular HGB Conc 32.7 g/dL (30.0-36.0); Mean Corpuscular Hemoglobin 27.5 pg (28.0-34.0); Mean Corpuscular Volume 84.1 fl (81-99); Mean Platelet Volume 9.7 fL (7.4-10.4); Monocytes # 0.8 10^3/uL (0.2-0.9); Monocytes % 8.6 %; Neutrophils # 5.67 10^3/uL (1.8-7.7); Neutrophils % 62.2 %; Nucleated Red Blood Cells % 0 %; Platelet Count 409 10^3/cmm (130-400); Red Blood Count 4.77 10^6/uL (4.1-5.3); Red Cell Distribution Width 13.9 % (12.1-15.1); White Blood Count 9.1 10^3/uL (4.0-10.0)
[2022-04-23 19:19] LABS: HCG, Serum Qual Negative (Negative)
[2022-04-23 19:28] LABS: Alanine Aminotransferase 36 U/L (0-33); Albumin Level 4.5 g/dL (3.5-5.2); Alkaline Phosphatase 81 U/L (35-105); Anion Gap 13.7 (5-19); Aspartate Amino Transferase 28 U/L (0-32); Blood Urea Nitrogen 9 mg/dL (6-20); Calcium 9.4 mg/dL (8.5-10.5); Carbon Dioxide 27 mmol/L (22-29); Chloride 101 mmol/L (98-107); Globulin 3.2 g/dL (1.3-4.6); Glomerular Filtration Rate 94.2 mL/min (90-130); Glucose 105 mg/dL (65-115); Lipase 38 U/L (13-60); Osmolality Calculated 285 mOsm/kg (285-295); Potassium 3.7 mmol/L (3.5-5.1); Sodium 138 mmol/L (136-145); Total Bilirubin 0.3 mg/dL (0.15-1.2); Total Protein 7.7 g/dL (6.6-8.7)
--- NOTE | 2022-04-23 22:12 | CTR_ITS ---
PROCEDURE INFORMATION: Exam: CT Abdomen And Pelvis Without Contrast Exam date and time: 04/23/2022 10:26 PM Age: 37 years old Clinical indication: Abdominal pain; Prior surgery; Surgery type: Gb. Csection; Patient HX: C/O periumbilical pain; Additional info: Abd pain TECHNIQUE: Imaging protocol: Computed tomography of the abdomen and pelvis without contrast. Radiation optimization: All CT scans at this facility use at least one of these dose optimization techniques: automated exposure control; mA and/or kV adjustment per patient size (includes targeted exams where dose is matched to clinical indication); or iterative reconstruction. COMPARISON: CT abdomen pelvis con [id number] 05/10/2019 1:06 PM RADIATION DOSE METRICS: Total DLP (mGy-cm): 1238.23 FINDINGS: Liver: The liver is mildly enlarged. No parenchymal lesion is seen. Gallbladder and bile ducts: The gallbladder has been removed. No biliary ductal dilatation. Pancreas: Normal. No ductal dilation. Spleen: Normal. No splenomegaly. Adrenal glands: Normal. No mass. Kidneys and ureters: Normal. No hydronephrosis. Stomach and bowel: Unremarkable. No obstruction. No mucosal thickening. Appendix: The appendix is normal. Intraperitoneal space: Unremarkable. No free air. No significant fluid collection. Vasculature: Unremarkable. No abdominal aortic aneurysm. Lymph nodes: Unremarkable. No enlarged lymph nodes. Urinary bladder: Unremarkable as visualized. Reproductive: The uterus and ovaries appear normal. A 3 cm right ovarian cyst is present. Bones/joints: Unremarkable. No acute fracture. Soft tissues: Unremarkable. CT/CT abdomen pelvis con [id number] IMPRESSION: 1. No acute abnormality is seen in the abdomen or pelvis. 2. Mild hepatomegaly.
--- NOTE | 2022-04-23 22:18 | ED_ITS ---
HPI - Abdominal Pain General: Chief Complaint: Abdominal Pain Stated Complaint: ABD Pain\Lower Back Pain Time Seen by Provider: 04/23/22 20:18 Source: patient Mode of arrival: ambulatory Limitations: no limitations History of Present Illness: 37-year-old female who states that over the last 2 days she been having diffuse abdominal pain. States is worse in her epigastric region but has been diffuse in nature states its worsened today her pain is a 6 out of 10 she had some vomiting some diarrhea she denies any fevers. She denies any worsening improving factors. She has a history of a cholecystectomy. Associated Symptoms: Reports nausea and vomiting; Denies chills, dysuria and fever(s) Related Data: Date of Last Menstrual Period: 11/29/20 Review of Systems Const: Denies: fever(s), chills, body aches or change in appetite Eyes: Denies: blurry vision or eye discomfort ENMT: Denies: throat pain or dental pain Card: Denies: chest pain Resp: Denies: dyspnea GI: Reports: abdominal pain, nausea and vomiting : Denies: dysuria Musc: Denies: neck pain or back pain Skin/Breast: Denies: rash Neuro: Denies: headache(s) Psych: Denies: depression Brown/Lymph: Denies: easy bruising All/Imm: Denies: urticaria PFSH ED PFSH: Medical History Allergic rhinitis due to allergen History of hypertension Hypersomnia Low grade squamous intraepithelial lesion on cytologic smear of cervix (LGSIL) Muscle strain of right shoulder region Muscle tension headache No pertinent past medical history neghx: htn,dm,thyroid,dvt/pe Obesity, morbid, BMI 40.0-49.9 Prediabetes Surgical History H/O section 1--04/25/[address] Peter Thompson at [facility] in [place], [place] 2-- 03/25/[address] Tristan Mcknight at [facility] in [place], [place] H/O tubal ligation (~03/25/11) Performed at time of section History of cholecystectomy (~07/2009) Laparoscopic. Performed at [facility] in [place], [place] Family History Father Diabetes Hyperlipidemia Hypertension Grandfather No problems noted. Grandmother Hyperlipidemia Paternal grandmother Hypertension Paternal grandmother Diabetes Paternal grandmother Family/Other Family history of thyroid problem Paternal aunt Breast cancer Paternal great aunt Thyroid cancer Lung cancer Throat cancer Other Ovarian cancer Social History Smoking and tobacco status: never smoked Alcohol intake: never Marital status: Number of children: 2 Current occupational status: unemployed History of recent travel: No Current gender identity: Female Additional social history: - Tobacco use: Denies Alcohol use: Denies Drug use: Denies Female Reproductive History: Date of last menstrual period: 11/29/20 Physical Exam Const: COMMON NORMALS: no acute distress, patient oriented x3 and healthy appearing HENMT: COMMON NORMALS: normocephalic and atraumatic HEAD & SCALP: normocephalic and atraumatic Eye: COMMON NORMALS: Equal, round and reactive pupils present and EOMs intact bilaterally PUPIL: Yes Equal, round and reactive pupils present Neck/C-Spine: COMMON NORMALS: full ROM and supple Chest: COMMONS NORMALS: normal inspection of the chest and normal palpation of entire chest wall Resp: COMMON NORMALS: normal respiratory effort, No retractions, No use of accessory muscles and clear to auscultation bilaterally AUSCULTATION: clear to auscultation bilaterally Cardio: COMMON NORMALS: regular rate, regular rhythm and No murmurs present ( Cardio) RATE: regular rate RHYTHM: regular rhythm GI: COMMON NORMALS: Normal to inspection, nondistended, normoactive bowel sounds present, Soft to palpation, non-tender and no masses PALPATION: Yes Soft to palpation Extremity: COMMON NORMALS: normal to inspection and full ROM Neuro: COMMON NORMALS: patient oriented x3, moves all extremities and no focal motor deficits Psych: COMMON NORMALS: mental status grossly normal, Normal thought process present and cooperative THOUGHT PROCESS: Normal thought process present Skin: COMMON NORMALS: no rashes or lesions noted and no wounds GENERAL SKIN EXAM: no rashes or lesions noted Course Vital Signs: Vital signs: Vital Signs Temperature 98.3 F 04/23/22 19:05 Pulse Rate 89 04/23/22 22:49 Respiratory Rate 16 04/23/22 22:49 Blood Pressure 153/116 04/23/22 22:49 Pulse Oximetry 99 04/23/22 22:49 Oxygen Delivery Me thod 04/23/22 22:49 MDM - Abdominal Pain Medical Decision Making Patient presents here with abdominal pain her exam here is benign blood work CT scan is normal she does feel improved here she is stable for discharge she is to follow-up PCP and return if worsening. Lab Data 04/23/22 19:01 04/23/22 19:01 Labs/Radiology: Radiology Impressions Abdomen/Pelvis CT 04/23/22 22:12 IMPRESSION: 1. No acute abnormality is seen in the abdomen or pelvis. 2. Mild hepatomegaly. Laboratory Results WBC 9.1 10^3/uL (4.0-10.0) 04/23/22 19: RBC 4.77 10^6/uL (4.1-5.3) 04/23/22 19: Hgb 13.1 g/dL (11.5-15.3) 04/23/22 19: Hct 40.1 % (37.0-47.0) 04/23/22 19: MCV 84.1 fl (81-99) 04/23/22 19: MCH 27.5 pg (28.0-34.0) L 04/23/22 19: MCHC 32.7 g/dL (30.0-36.0) 04/23/22 19: RDW 13.9 % (12.1-15.1) 04/23/22 19: Plt Count 409 10^3/cmm (130-400) H 04/23/22 19: MPV 9.7 fL (7.4-10.4) 04/23/22 19: Neut % (Auto) 62.2 % 04/23/22: Lymph % (Auto) 25.4 % 04/23/22 19: Mccormick % (Auto) 8.6 % 04/23/22 19: Eos % (Auto) 2.5 % 04/23/22 19: Baso % (Auto) 0.8 % 04/23/22 19: Neut # (Auto) 5.67 10^3/uL (1.8-7.7) 04/23/22 19: Lymph # (Auto) 2.3 10^3/uL (0.8-4.8) 04/23/22 19: Mccormick # (Auto) 0.8 10^3/uL (0.2-0.9) 04/23/22 19: Eos # (Auto) 0.2 10^3/uL (0.0-0.8) 04/23/22 19: Baso # (Auto) 0.1 10^3/uL (0.0-0.1) 04/23/22 19: Nucleated RBC % (auto) 0 % 04/23/22 19: Nucleated RBCs # 0.0 /100WBC 04/23/22 19: Sodium 138 mmol/L (136-145) 04/23/22 19: Potassium 3.7 mmol/L (3.5-5.1) 04/23/22 19: Chloride 101 mmol/L (98-107) 04/23/22 19: Carbon Dioxide 27 mmol/L (22-29) 04/23/22 19: Anion Gap 13.7 (5-19) 04/23/22 19: BUN 9 mg/dL (6-20) 04/23/22 19: Creatinine 0.7 mg/dL (0.5-0.9) 04/23/22 19: GFR Calculation 94.2 mL/min (90-130) 04/23/22 19: Glucose 105 mg/dL (65-115) 04/23/22 19: Calculated Osmolality 285 mOsm/kg (285-295) 04/23/22 19: Calcium 9.4 mg/dL (8.5-10.5) 04/23/22 19: Total Bilirubin 0.3 mg/dL (0.15-1.2) 04/23/22 19: AST 28 U/L (0-32) 04/23/22 19: ALT 36 U/L (0-33) H 04/23/22 19: Alkaline Phosphatase 81 U/L (35-105) 04/23/22 19: Total Protein 7.7 g/dL (6.6-8.7) 04/23/22 19: Albumin 4.5 g/dL (3.5-5.2) 04/23/22 19:01 Globulin 3.2 g/dL (1.3-4.6) 04/23/22 19:01 Lipase 38 U/L (13-60) 04/23/22 19:01 HCG, Qual Negative (Negative) 04/23/22 19:01 Discharge Plan Discharge Patient Disposition: Home Clinical Impression: Abdominal pain Qualifiers: Abdominal location: generalized Qualified Code(s): R10.84 - Generalized abdominal pain Condition: Stable Prescriptions: New Protonix 40 mg tablet,delayed release (DR/EC) 40 mg PO DAILY Qty: 60 0RF No Action ibuprofen 600 mg tablet 600 mg PO Q8H PRN (Reason: pain) Qty: 30 0RF Zyrtec 10 mg Tablet 10 mg PO DAILY PRN (Reason: Allergy Symptoms) Tylenol Ex Str Rapid Release 500 mg Tablet 500 mg PO Q6H PRN (Reason: Pain) fluticasone propionate 50 mcg/actuation spray,suspension 1 spray intranasal BID PRN (Reason: Allergy Symptoms) azithromycin 500 mg tablet See Rx Instructions .ROUTE .COMPLEX Qty: 3 0RF Rx Instructions: For 250 mg dose pack: take 500 mg today (day 1), then 250 mg for 4 days (days 2-5) Discharge Orders: Discharge ED (Routine); Ordered 04/23/22 Ordered By: Stephanie Jacobs Referrals: Nikhil Julian MD [Primary Care Provider] - Discharge Diet: Advance as tolerated Discharge Activity: Resume usual activity Patient Instructions: Abdominal Pain (ED) Coding Level of Care Code ED Can Closing Machine Operator for Chg Fwd Exam Comprehensive
[2022-04-23] MEDS: lidocaine 2% viscous 15 ML, aluminum-mag hydrox-simethicon 30 ML, sucralfate oral liq 1 GM PO (22:25)
[2022-04-23 22:49] VITALS: BP 153/116; PULSE 89; RESP 16; O2SAT 99
--- NOTE | 2022-04-24 | PC.NURSE ---
zofran was given PO, pt refused IV
[2022-04-24 01:39] LABS: Add Urine Microscopic? YES; Bilirubin Urine Neg (Negative); Blood Urine 2+ (Negative); Glucose Urine UA Norm (Normal); Ketones Urine Negative (Negative); Leukocyte Esterase Urine Negative (Negative); Nitrate Urine Negative (Negative); Protein Urine Neg (Negative); RBC Urine 50-80 /hpf (0-2); Specific Gravity, Urine 1.025 (1.005-1.030); Urine Appearance Clear (CLEAR); Urine Color Yellow (Yellow); Urobilinogen Urine 1 mg/dL (Negative); WBC Urine 0-4 /hpf (0-5); pH Urine 6 (5-7)
[2022-04-24 01:40] LABS: Add Urine Culture? No; Bacteria Urine TRACE /hpf; Calcium Oxalate Crystals Urine 25-40 /hpf
== END 2022-04-23 23:58 | disposition home or self-care (01) ==
PROVIDERS: Emergency Provider Emergency Medicine; PCP Family Medicine Adult Medicine
DX: R10.84 Generalized abdominal pain (principal); I10 Essential (primary) hypertension
CPT/HCPCS: 36415; 74176; 80053; 81001; 81003; 83690; 84703; 85025; 99284

== ENCOUNTER → 2023-03-24 09:01 | Outpatient (BNVA) | payer BC, MEDICAID, SELFPAY | PROVIDERS: PCP Family Medicine Adult Medicine; Visit Provider Obstetrics & Gynecology | DX: N83.291 Other ovarian cyst, right side (principal) | CPT/HCPCS: 76830 ==

== ENCOUNTER 2023-05-10 11:12 | Emergency (ER) | payer BC, MEDICAID, SELFPAY ==
[2023-05-10 11:20] VITALS: BP 170/122; PULSE 92; RESP 16; TEMP 36.4; O2SAT 97; BMI 41.3
--- NOTE | 2023-05-10 11:29 | ED_ITS ---
HPI - COVID General: Chief Complaint: COVID symptoms Stated Complaint: sore throat Time Seen by Provider: 05/10/23 11:15 History of Present Illness: 38-year-old female presents emerged part with complaints of a sore throat as well as a cough and difficulty speaking without having a raspy overall feeling. She states that this started approximately 2 days ago and is continued to worsen. She states her throat feels very raw and scratchy she states she is not having difficulty breathing. She states that she has been exposed to recent sick contacts with similar illness. She states that she gets this same problem every year about this time. She denies fevers chills or night sweats. She denies nausea vomiting dizziness or lightheaded feeling. She denies nuchal rigidity or headache. COVID 19 common symptoms: positive throat pain COVID Results: SARS-CoV-2 Antigen (Rapid) negative (Negative) 05/10/23 11:50 SARS-CoV-2 RNA (RT-PCR) Not detected (NOT DETECTED) 04/17/21 1 1:43 Review of Systems General: Reports: 10 or more systems reviewed and unremarkable except in HPI and below ENMT: Reports: throat pain, odynophagia and hoarseness PFSH ED PFSH: Medical History (Updated 05/10/23 @ 12:43 by Pipo Paz MD) Intertriginous dermatitis associated with moisture Vasovagal syncopes Irritable bowel syndrome with diarrhea Allergic rhinitis due to allergen Seizure History of hypertension Obesity, morbid, BMI 40.0-49.9 Prediabetes Abnormal uterine bleeding (AUB) Low grade squamous intraepithelial lesion on cytologic smear of cervix (LGSIL) Surgical History H/O section 1--04/25/[address] Peter Thompson at [facility] in [place], [place] 2-- 03/25/[address] Tristan Mcknight at [facility] in [place], [place] H/O tubal ligation (~03/25/11) Performed at time of section History of cholecystectomy (~07/2009) Laparoscopic. Performed at [facility] in [place], [place] Family History Father Diabetes Hyperlipidemia Hypertension Grandfather No problems noted. Grandmother Hyperlipidemia Paternal grandmother Hypertension Paternal grandmother Diabetes Paternal grandmother Family/Other Family history of thyroid problem Paternal aunt Breast cancer Paternal great aunt Thyroid cancer Lung cancer Throat cancer Other Ovarian cancer Social History Smoking and tobacco/nicotine status: never used tobacco/nicotine Alcohol intake: never Substance/Drug Use: never Additional social history: - Tobacco use: Denies Alcohol use: Denies Drug use: Denies Marital status: Number of children: 2 Current occupational status: unemployed Current gender identity: Female Physical Exam Narrative: EXAM NARRATIVE: Constitutional: the patient appears well nourished and of normal development. Vital signs as documented. No acute distress at present. Alert and oriented-to person, place, time and situation. Head, eyes, ears, nose, mouth, throat: Normocephalic, atraumatic. Pupils-equal, round, reactive to light. No scleral icterus. Normal-appearing external ears. Normal appearing nasal turbinates, no drainage. No obvious oral lesions, posterior oropharynx mild erythema no exudates noted. Neck: Supple, trachea is midline, no lymphadenopathy, no jugular venous distension, thyromegaly, or carotid bruits. Carotid upstrokes are brisk bilaterally. Lungs: clear to auscultation to all lung hatch. Symmetrical rise and fall of chest, no obvious signs of increased work of breathing at present. Cardiac: Regular rate and rhythm, positive S1, S2. No murmurs, rubs or gallops that I can appreciate Abdomen: Soft, non-tender to palpation, normal active bowel sounds to all quadrants. No palpable masses, no organomegaly and abdominal bruits. Extremities: 2+ pulses in the upper extremities that are equal bilaterally, 2+ pulses in the lower extremities that are equal bilaterally. Non-edematous. Moves all extremities well, sensation to all extremities are noted. Skin: Warm, dry, intact. Course Vital Signs: Vital signs: Vital Signs Temperature 97.6 F 05/10/23 11:20 Pulse Rate 92 05/10/23 11:20 Respiratory Rate 15 05/10/23 11:57 Blood Pressure 170/122 05/10/23 11:20 Pulse Oximetry 97 05/10/23 12:12 Oxygen Delivery Me thod Room Air 05/10/23 12:12 MDM - COVID Medical Decision Making Physical exam completed, will obtain COVID swab, influenza a and B swab and rapid strep swab. Lab Data I reviewed the patient's lab results. Laboratory Results Influenza Type A Ag negative (Negative) 05/10/23 11:50 Influenza Type B Ag negative (Negative) 05/10/23 11:50 SARS-CoV-2 Ag (Rapid) negative (Negative) 05/10/23 11:50 Group A Strep Rapid Negative (Negative) 05/10/23 11:50 SARS-CoV-2 Antigen (Rapid) negative (Negative) 05/10/23 11:50 SARS-CoV-2 RNA (RT-PCR) Not detected (NOT DETECTED) 04/17/21 1 1:43 No radiology studies performed this visit Discharge Plan Discharge Patient Disposition: Home Clinical Impression: Acute viral pharyngitis, Acute viral laryngitis Condition: Stable Prescriptions: No Action azithromycin 250 mg tablet See Rx Instructions PO .COMPLEX Qty: 6 0RF Rx Instructions: take 500 mg today (day 1), then 250 mg for 4 days (days 2-5) PO hydroxyzine HCl 25 mg tablet 25 mg PO Q8H PRN (Reason: itching) Qty: 30 2RF norethindrone-ethin estradiol 1-35 mg-mcg tablet 1 tab PO DAILY Qty: 84 4RF Tylenol Ex Str Rapid Release 500 mg Tablet 500 mg PO Q6H PRN (Reason: Pain) Discharge Orders: Discharge ED (Routine); Ordered 05/10/23 Ordered By: Pipo Paz Referrals: Nikhil Julian MD [Primary Care Provider] - Discharge Diet: Advance as tolerated Discharge Activity: Resume usual activity Patient Instructions: Opioid Safety, Pain Management Activity Restrictions/Additional Instructions: Activity Restrictions/Additional Instructions: Thank you for choosing [facility] for your healthcare needs today. Please realize that you were seen in the Emergency Department and that we are providing you with an emergency medical screening exam and this may not be a complete and all inclusive of all the testing and or medical work-up that you may need to determine your ailment or severity of your illness. It is very important that you follow-up as instructed with your Primary care provider or Specialist for additional evaluation and to discuss your medical treatment plan. You may return to the Emergency Department should you have concerns or if your condition changes or worsens in any way. Coding Level of Care Code ED Telegraphic Typewriter Operator for Ramona Morse
[2023-05-10 11:57] VITALS: RESP 15
[2023-05-10 12:12] VITALS: O2SAT 97
[2023-05-10 12:13] LABS: Rapid Strep A Test Negative (Negative)
[2023-05-10 12:18] LABS: Influenza A by IFA negative (Negative); Influenza B by IFA negative (Negative); SARS Covid-2 Antigen negative (Negative)
[2023-05-10 12:48] VITALS: RESP 15
== END 2023-05-10 12:49 | disposition home or self-care (01) ==
PROVIDERS: Emergency Provider Internal Medicine; PCP Family Medicine Adult Medicine
DX: J02.8 Acute pharyngitis due to other specified organisms (principal); J04.0 Acute laryngitis; B97.89 Other viral agents as the cause of diseases classified elsewhere; Z11.52 Encounter for screening for COVID-19
CPT/HCPCS: 87081; 87426; 87804; 87880; 99283

== ENCOUNTER → 2023-09-10 14:29 | Outpatient (BNVA) | payer BC, MEDICAID, SELFPAY | PROVIDERS: PCP Family Medicine Adult Medicine; Visit Provider Physician Assistant | DX: J02.9 Acute pharyngitis, unspecified (principal) | CPT/HCPCS: 87880 ==

== ENCOUNTER → 2024-09-05 11:49 | Outpatient (BNVA) | payer BC, MEDICAID, SELFPAY | PROVIDERS: PCP Family Medicine; Visit Provider Family Medicine | DX: I10 Essential (primary) hypertension (principal); R73.03 Prediabetes | CPT/HCPCS: 80053; 80061; 83036; 84439; 84443; 85025 ==

== ENCOUNTER 2024-11-20 21:18 | Emergency (ER) | payer BC, MEDICAID, SELFPAY ==
[2024-11-20 21:41] VITALS: BP 168/100; PULSE 93; RESP 18; TEMP 36.9; O2SAT 98; BMI 41.9
--- NOTE | 2024-11-20 21:43 | XRR_ITS ---
PROCEDURE INFORMATION: Exam: XR Left Knee Exam date and time: 11/20/2024 10:47 PM Age: 39 years old Clinical indication: Injury or trauma; Fall; Blunt trauma; Knee; Left TECHNIQUE: Imaging protocol: Radiologic exam of the left knee. Views: 3 views. COMPARISON: No relevant prior studies available. FINDINGS: Bones/joints: Normal. No joint effusion. Soft tissues: Unremarkable. XR/XR knee LT 3V* [id number] IMPRESSION: No acute findings.
--- NOTE | 2024-11-20 21:43 | XRR_ITS ---
PROCEDURE INFORMATION: Exam: XR Left Finger(s) Exam date and time: 11/20/2024 10:47 PM Age: 39 years old Clinical indication: Injury or trauma; Fall; Blunt trauma (contusions or hematomas); Left; Ring finger TECHNIQUE: Imaging protocol: Radiologic exam of the left fingers. Views: Minimum 2 views. COMPARISON: No relevant prior studies available. FINDINGS: Bones/joints: Normal. Soft tissues: Unremarkable. XR/XR finger LT min 2V [id number] IMPRESSION: No acute findings.
--- NOTE | 2024-11-20 23:18 | ED_ITS ---
HPI - Fall General: Chief Complaint: Fall Stated Complaint: Rt Knee and Finger Pain Time Seen by Provider: 11/20/24 22:29 History of Present Illness: Patient fell forward, slipping in the mud, and complains of injury to ring finger, and left knee. The lateral side of her left knee, and her proximal ring finger, left hand, fourth finger. This occurred 2-3 days prior to admission to the ED. No fevers. Functional use of her left hand, and left knee has been difficult due to pain. Associated symptoms-after fall: Denies abdominal pain, chest pain or headache(s) Related Data Home Medications ?Medication ?Instructions ?Recorded ?Confirmed acetaminophen 500 mg tablet 500 mg PO Q6H PRN Pain 10/2009/28/24 Previous Rx's ?Medication ?Instructions ?Recorded ibuprofen 800 mg tablet 800 mg PO Q8H PRN pain #30 t abs 04/08/24 azelastine 205.5 mcg (0.15 %) 2 spray intranasal DAILY PRN 09/28/24 nasal spray (Astepro Allergy) allergic symptoms #4 mL azithromycin 250 mg tablet See Rx Instructions PO .COM PLEX #6 09/28/24 tabs metoprolol tartrate 25 mg tablet 12.5 mg (1/2 x 25 mg) PO BID #30 10/13/24 tabs Allergies Allergy/AdvReac Type Severity Reaction Status Date / Time chocolate flavor Allergy Intermediate ALGY-Hives Verified 09/28/24 11:02 amoxicillin Allergy ALGY-Hives Verified 09/28/24 11:02 diphenhydramine (From Allergy ALGY-Hives Verified 09/28/24 11:02 Benadryl) Iodinated Contrast Media Allergy ALGY-Hives Verified 09/28/24 11:02 Penicillins Allergy ALGY-Hives Verified 09/28/24 11:02 Review of Systems General: Reports: 10 or more systems reviewed and unremarkable except in HPI and below Const: Denies: fever(s) or chills Eyes: Denies: change in vision or blurry vision ENMT: Denies: throat pain or odynophagia Card: Denies: chest pain, palpitations or swelling of feet/ankles Resp: Denies: dyspnea or productive cough GI: Denies: abdominal pain, nausea or vomiting : Denies: flank pain or difficulty voiding Musc: Reports: extremity pain and joint pain Neuro: Denies: headache(s), numbness in extremities or sensory changes PFSH ED PFSH: Medical History (Updated 11/20/24 @ 23:23 by CHARLOTTE Dickson) PTSD (post-traumatic stress disorder) Elevated blood pressure reading Worms in stool Vertigo of central origin Intertriginous dermatitis associated with moisture Vasovagal syncopes Irritable bowel syndrome with diarrhea Allergic rhinitis due to allergen Seizure History of hypertension Obesity, morbid, BMI 40.0-49.9 Prediabetes Abnormal uterine bleeding (AUB) Low grade squamous intraepithelial lesion on cytologic smear of cervix (LGSIL) Surgical History H/O section 1--04/25/[address] Peter Thompson at [facility] in [place], [place] 2-- 03/25/[address] Tristan Mcknight at [facility] in [place], [place] H/O tubal ligation (~03/25/11) Performed at time of section History of cholecystectomy (~07/2009) Laparoscopic. Performed at [facility] in [place], [place] Family History Father Diabetes Hyperlipidemia Hypertension Grandfather No problems noted. Grandmother Hyperlipidemia Paternal grandmother Hypertension Paternal grandmother Diabetes Paternal grandmother Family/Other Family history of thyroid problem Paternal aunt Breast cancer Paternal great aunt Thyroid cancer Lung cancer Throat cancer Other Ovarian cancer Social History Smoking and tobacco/nicotine status: never used tobacco/nicotine Alcohol intake: never Substance/Drug Use: never Additional social history: - Tobacco use: Denies Alcohol use: Denies Drug use: Denies Marital status: Number of children: 2 Current occupational status: unemployed Current gender identity: Female Physical Exam Const: COMMON NORMALS: no acute distress and patient oriented x3 HENMT: COMMON NORMALS: normocephalic and atraumatic HEAD & SCALP: normocephalic and atraumatic Lymph: LYMPHATIC: no lymphadenopathy noted Chest: COMMONS NORMALS: normal inspection of the chest and normal palpation of entire chest wall Resp: COMMON NORMALS: normal respiratory effort, No retractions and clear to auscultation bilaterally AUSCULTATION: clear to auscultation bilaterally Cardio: COMMON NORMALS: regular rate and regular rhythm RATE: regular rate RHYTHM: regular rhythm GI: COMMON NORMALS: Normal to inspection, nondistended, normoactive bowel sounds present, Soft to palpation and non-tender PALPATION: Yes Soft to palpation : COMMON NORMALS: Yes no CVA tenderness BLADDER/KIDNEY EXAM: Yes no CVA tenderness Back/Pelvis: COMMON NORMALS: no CVA tenderness Extremity: LEFT UPPER EXTREMITY: Yes hand & digits Left hand and digits: Yes inspection (pain: left 4th proximal finger) LEFT LOWER EXTREMITY: Yes knee joint Left knee: Yes palpation (pain lateral) and Yes special tests Left knee special tests: Posterior sag (gravity drawer) test: Negative, Anterior drawer sign: Negative, Anterior Lamar test: Negative, Posterior Lamar test: Negative, Valgus stress test: Positive and Varus stress test: Negative Neuro: COMMON NORMALS: patient oriented x3 and CN's II-XII intact bilaterally Psych: COMMON NORMALS: Normal thought process present and cooperative THOUGHT PROCESS: Normal thought process present Skin: COMMON NORMALS: no rashes or lesions noted and no wounds GENERAL SKIN EXAM: no rashes or lesions noted Course Vital Signs: Vital signs: Vital Signs Temperature 98.4 F 11/20/24 21:41 Pulse Rate 89 11/20/24 23:39 Respiratory Rate 16 11/20/24 23:39 Blood Pressure 175/93 11/20/24 23:39 Pulse Oximetry 98 11/20/24 23:39 Oxygen Delivery Me thod Room Air 11/20/24 21:41 MDM - Fall Medical Decision Making Patient is a 39-year-old female with left ring finger pain and left knee pain. X-ray on left knee is negative for acute fracture. On exam, it does appear to be associated with LCL versus meniscus given the history. Left ring finger appears to have occult fracture on my view of x-ray. Will treat. Patient will follow-up with orthopedics for further x-ray and information. Discussed with patient to utilize Tylenol and ibuprofen for pain. Lab Data Radiology Impressions Finger X-Ray 11/20/24 21:43 IMPRESSION: No acute findings. Knee X-Ray 11/20/24 21:43 IMPRESSION: No acute findings. All radiology interpretation(s) finalized by discharge ED provider radiology interpretation(s): Official report is no acute findings, however I do note a slight disruption in the cortical of the left proximal medial ring metacarpal on the finger view. Knee I do not note any acute findings. Discharge Plan Discharge Patient Disposition: Home Clinical Impression: Contusion of left knee, initial encounter Closed fracture of metacarpal of left hand Qualifiers: Encounter type: initial encounter Metacarpal bone: fourth Metacarpal location: shaft Fracture alignment: nondisplaced Qualified Code(s): S62.355A - Nondisplaced fracture of shaft of fourth metacarpal bone, left hand, initial encounter for closed fracture Condition: Stable Prescriptions: No Action ibuprofen 800 mg tablet 800 mg PO Q8H PRN (Reason: pain) Qty: 30 0RF azithromycin 250 mg tablet See Rx Instructions PO .COMPLEX Qty: 6 0RF Rx Instructions: take 500 mg today (day 1), then 250 mg for 4 days (days 2-5) PO azelastine [Astepro Allergy] 205.5 mcg (0.15 %) spray,non-aerosol 2 spray intranasal DAILY PRN (Reason: allergic symptoms) Qty: 4 0RF Rx Instructions: administer into each nostril metoprolol tartrate 25 mg tablet 12.5 mg PO BID Qty: 30 0RF Tylenol Ex Str Rapid Release 500 mg Tablet 500 mg PO Q6H PRN (Reason: Pain) Discharge Orders: Discharge ED (Routine); Ordered 11/20/24 Ordered By: Dione Hennessy Referrals: Jose Jacobson DO [Physician, Orthopedics] Mame Vásquez DO [Primary Care Provider, Family Practice] Discharge Diet: Usual diet Discharge Activity: Limit activity as instructed Patient Instructions: Finger Fracture (ED), Knee Pain (ED) Activity Restrictions/Additional Instructions: Wear splint to your finger at all times. Follow-up with orthopedic as directed. Ice, elevate, ibuprofen, and Tylenol help with pain. Return to ED for redness, increasing pain. Ortega wrap to left knee. Follow-up with orthopedic as directed for further advisement Print Language: Estonian Coding Level of Care Code ED Healthcare Management Consultant for Ramona Morse
[2024-11-20 23:39] VITALS: BP 175/93; PULSE 89; RESP 16; O2SAT 98
== END 2024-11-20 23:41 | disposition home or self-care (01) ==
PROVIDERS: Emergency Provider Physician Assistant; PCP Family Medicine
DX: S80.02XA Contusion of left knee, initial encounter (principal); S62.355A Nondisplaced fracture of shaft of fourth metacarpal bone, left hand, initial encounter for closed fracture; W01.0XXA Fall on same level from slipping, tripping and stumbling without subsequent striking against object, initial encounter
CPT/HCPCS: 73140; 73562; 99284

== ENCOUNTER → 2024-11-22 14:34 | Outpatient (BNVA) | payer BC, MEDICAID, SELFPAY | PROVIDERS: PCP Family Medicine; Visit Provider Orthopaedic Surgery | DX: S62.355A Nondisplaced fracture of shaft of fourth metacarpal bone, left hand, initial encounter for closed fracture (principal); S80.02XA Contusion of left knee, initial encounter; X58.XXXA Exposure to other specified factors, initial encounter | CPT/HCPCS: 73130 ==

== ENCOUNTER → 2024-12-20 09:53 | Outpatient (BNVA) | payer BC, MEDICAID, SELFPAY | PROVIDERS: PCP Family Medicine; Visit Provider Orthopaedic Surgery | DX: S62.615D Displaced fracture of proximal phalanx of left ring finger, subsequent encounter for fracture with routine healing (principal); X58.XXXD Exposure to other specified factors, subsequent encounter | CPT/HCPCS: 73130; 73560; 73565 ==

== ENCOUNTER → 2025-02-09 09:31 | Outpatient (BNVA) | payer BC, MEDICAID, SELFPAY | PROVIDERS: PCP Family Medicine; Visit Provider Family Medicine | DX: Z01.419 Encounter for gynecological examination (general) (routine) without abnormal findings (principal); I10 Essential (primary) hypertension; E66.01 Morbid (severe) obesity due to excess calories | CPT/HCPCS: 80061; 83525; 87624 ==

== ENCOUNTER 2025-02-13 14:43 | Outpatient (CLI) | payer BC, MEDICAID, SELFPAY ==
--- NOTE | 2025-02-13 15:00 | MM_ITS ---
WS: [id number] BILATERAL 3D TOMOSYNTHESIS DIGITAL SCREENING MAMMOGRAPHY WITH CAD CLINICAL INFORMATION: screening HISTORY: Screening mammogram. No current complaints. COMPARISON: Baseline TECHNIQUE: Bilateral CC and MLO views. FINDINGS: Scattered fibroglandular densities bilaterally. No suspicious focal mass, asymmetry, calcifications, or architectural distortion. No evidence of malignancy. Incidental benign punctate calcifications MM/MM scr tomosynthesis [id number] IMPRESSION: DENSITY: There are scattered areas of fibroglandular density. BI-RADS: 2 - Benign. FOLLOW UP: 1 Year Follow-up Recommend return to annual screening mammography.
== END 2025-02-13 14:44 | disposition home or self-care (01) ==
PROVIDERS: PCP Family Medicine; Visit Provider Family Medicine
DX: Z12.31 Encounter for screening mammogram for malignant neoplasm of breast (principal)
CPT/HCPCS: 77063; 77067; 87880

== ENCOUNTER → 2025-03-06 07:51 | Outpatient (BNVA) | payer BC, MEDICAID, SELFPAY | PROVIDERS: PCP Family Medicine; Visit Provider Obstetrics & Gynecology | DX: R87.612 Low grade squamous intraepithelial lesion on cytologic smear of cervix (LGSIL) (principal) | CPT/HCPCS: 81025; 88305 ==

== ENCOUNTER 2025-03-07 07:26 | Emergency (ER) | payer BC, MEDICAID, SELFPAY ==
--- OUTSIDE RECORDS SUMMARY | 2025-03-07 07:30 | XMS_ITS | Clinical Summary ---
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
--- OUTSIDE RECORDS SUMMARY | 2025-03-07 07:30 | XMS_ITS | Encounter Summary ---
Author Organization [facility] Address [address] [place] [address] Care Team Providers Care Casing Trimmer Name Role Phone Unavailable Primary Care Provider Unavailabl e Encounter Details Date Type Department Care Team (Late st Contact Info) Description 10/20/2002 Outpatient Historical [facility] [employer] [address] 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
--- OUTSIDE RECORDS SUMMARY | 2025-03-07 07:30 | XMS_ITS | Encounter Summary ---
Author Organization 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 Gender Identity Not on file Sexual Orientation Not on file documented as of this encounter Plan of Treatment Not on file documented as of this encounter Procedures Procedure Name Priority Date/Time Associated Diagnosis Comments CBC WITH DIFFERENTIAL Routine 02/27/2006 5:10 AM CDT BASIC METABOLIC PANEL Routine 02/27/2006 5:10 AM CDT DRUG SCREEN, URINE Routine 02/27/2006 2: 42 AM CDT CBC WITH DIFFERENTIAL Routine 02/27/2006 1:02 AM CDT PROTIME-INR Routine 02/27/2006 1:02 AM CDT HCG QUANTITATIVE, BLOOD Routine 02/27/2006 1:02 AM CDT ETHANOL LEVEL Routine 02/27/2006 1:02 AM CDT BASIC METABOLIC PANEL Routine 02/27/2006 1:02 AM CDT documented in this encounter Results * (ABNORMAL) CBC WITH DIFFERENTIAL (02/27/2006 5:10 AM CDT) WBC 14.1(H) 4.5 - 11.0 K/ul INTERFACE SYSTEM RBC 4.34 4.20 - 5.40 Mil/ul INTERFACE SYSTEM HEMOGLOBIN 12.3 12.0 - 16.0 g/dL INTERFACE SYSTEM HEMATOCRIT 37.6 36.0 - 46.0 % INTERFACE SYSTEM MCV 86.6 84.0 - 103.0 Fl INTERFACE SYSTEM MCH 28.3 27.0 - 34.0 pg INTERFACE SYSTEM MCHC 32.7 30.0 - 35.0 g/dL INTERFACE SYSTEM RDW 13.4 11.0 - 14.5 % INTERFACE SYSTEM PLATELETS 360 140 - 440 K/ul INTERFACE SYSTEM MPV 10.6 8.9 - 12.8 Fl INTERFACE SYSTEM NEUTROPHILS 77.7(H) 42.2 - 75.2 % INTERFACE SYSTEM LYMPHOCYTES 12.1(L) 24.0 - 44.0 % INTERFACE SYSTEM MONOCYTES 9.6 2.0 - 10.0 % INTERFA CE SYSTEM EOSINOPHILS 0.4 0.0 - 7.0 % INTERF TARA SYSTEM BASOPHILS 0.2 0.0 - 1.0 % INTERFAC E SYSTEM NEUTROPHIL ABSOLUTE 11.0(H) 2.0 - 8.0 K/uL INTERFACE SYSTEM LYMPHOCYTE ABSOLUTE 1.7 1.2 - 4.0 K/ul INTERFACE SYSTEM MONOCYTE ABSOLUTE 1.4(H) 0.1 - 0.6 K/ul INTERFACE SYSTEM EOSINOPHIL ABSOLUTE 0.1 0.0 - 0.7 K/ul INTERFACE SYSTEM BASOPHILS ABSOLUTE 0.0 0.0 - 0.2 K/ul INTERFACE SYSTEM PERIPHERAL BLOOD SMEAR REVIEW Automated Diff Automated Diff INTERFACE SYSTEM 02/27/2006 5:10 AM CDT us Bang Luke MD HEMATOLOGY ORDERABLES Final Result INTERFACE SYSTEM Refer to clinic/hospital department * (ABNORMAL) BASIC METABOLIC PANEL (02/27/2006 5:10 AM CDT) GLUCOSE 167(H) 70 - 110 mg/dL INTERFACE SYSTEM BUN 8 7 - 17 mg/dL INTERFACE SYSTEM CREATININE 0.9 0.7 - 1.2 mg/dL INTERFACE SYSTEM SODIUM 144 136 - 145 mEq/L INTERFACE SYSTEM POTASSIUM 3.4(L) 3.5 - 5.0 mEq/L INTERFACE SYSTEM CHLORIDE 110 95 - 110 mEq/L INTERFACE SYSTEM CO2 24 22 - 32 mmol/l INTERFACE SYSTEM ANION GAP 13 9 - 20 mEq/L INTERFACE SYSTEM OSMOLALITY, CALCULATED 296(H) 275 - 295 mOsm/Kg INTERFACE SYSTEM CALCIUM 9.4 8.4 - 10.5 mg/dL INTERFACE SYSTEM 02/27/2006 5:10 AM CDT Bang Luke MD CHEMISTRY ORDERABLES Final Result Performing Organization Address [facility] Phone Number INTERFACE SYSTEM Refer to clinic/hospital department * (ABNORMAL) DRUG SCREEN, URINE (02/27/2006 2:42 AM CDT) OPIATE QUAL, URINE Drug Positive(A) Drug Negative INTERFACE SYSTEM AMPHETAMINE QUAL, URINE Drug Negative Drug Negative INTERFACE SYSTEM BARBITURATE QUAL, URINE Drug Negative Drug Negative INTERFACE SYSTEM COCAINE QUAL URINE Drug Negative Drug Negative INTERFACE SYSTEM PCP QUAL, URINE Drug Negative Drug Negative INTERFACE SYSTEM CANNABINOIDS QUAL, URINE Drug Negative Drug Negative INTERFACE SYSTEM BENZODIAZEPINE QUAL, URINE Drug Negative Drug Negative INTERFACE SYSTEM 02/27/2006 2:42 AM CDT Yosvany Richey MD URINE ORDERABLES Final Res ult Performing Organization Address [facility] de Phone Number INTERFACE SYSTEM Refer to clinic/hospital department * PROTIME-INR (02/27/2006 1:02 AM CDT) PROTIME 14.2 12.6 - 14.9 Secs INTERFACE SYSTEM Comment: As of 05 note change in normal range. INR 1.0 INTERFACE SYSTEM Comment: Expected Values for INR: DVT/PE Goal INR 2.5; range 2.0 - 3.0 Valve Replacement Tissue Goal INR 2.5; range 2.0 - 3.0 Mechanical Goal INR 3.0; range 2.5 - 3.5 POST-PR Goal INR 2.5; range 2.0 - 3.0 or Goal 3.0; range 2.5 - 3.5 Atrial Fibrillation Goal INR 2.5; range 2.0 - 3.0 Ischemic Stroke Goal INR 2.5; range 2.0 - 3.0 For additional information see Guidelines for Anticoagulation available from the pharmacy Ykui Wells 02/27/2006 1:02 AM CDT us Yosvany Richey MD HEMATOLOGY ORDERABLES Bernie l Result INTERFACE SYSTEM Refer to clinic/hospital department * (ABNORMAL) CBC WITH DIFFERENTIAL (02/27/2006 1:02 AM CDT) WBC 21.7(H) 4.8 - 10.8 K/ul INTERFACE SYSTEM RBC 4.76 4.60 - 6.20 Mil/ul INTERFACE SYSTEM HEMOGLOBIN 13.6(L) 14.0 - 18.0 g/dL INTERFACE SYSTEM HEMATOCRIT 41.0 41.0 - 53.0 % INTERFACE SYSTEM MCV 86.1 84.0 - 103.0 Fl INTERFACE SYSTEM MCH 28.6 27.0 - 34.0 pg INTERFACE SYSTEM MCHC 33.2 30.0 - 35.0 g/dL INTERFACE SYSTEM RDW 13.4 11.0 - 14.5 % INTERFACE SYSTEM PLATELETS 417 140 - 440 K/ul INTERFACE SYSTEM MPV 10.5 8.9 - 12.8 Fl INTERFACE SYSTEM NEUTROPHILS 78.5(H) 42.2 - 75.2 % INTERFACE SYSTEM LYMPHOCYTES 11.2(L) 24.0 - 44.0 % INTERFACE SYSTEM MONOCYTES 10.0 2.0 - 10.0 % INTERFA CE SYSTEM EOSINOPHILS 0.1 0.0 - 7.0 % INTERF TARA SYSTEM BASOPHILS 0.2 0.0 - 1.0 % INTERFAC E SYSTEM NEUTROPHIL ABSOLUTE 17.0(H) 2.0 - 8.0 K/uL INTERFACE SYSTEM LYMPHOCYTE ABSOLUTE 2.4 1.2 - 4.0 K/ul INTERFACE SYSTEM MONOCYTE ABSOLUTE 2.2(H) 0.1 - 0.6 K/ul INTERFACE SYSTEM EOSINOPHIL ABSOLUTE 0.0 0.0 - 0.7 K/ul INTERFACE SYSTEM BASOPHILS ABSOLUTE 0.0 0.0 - 0.2 K/ul INTERFACE SYSTEM PERIPHERAL BLOOD SMEAR REVIEW Automated Diff Automated Diff INTERFACE SYSTEM 02/27/2006 1:02 AM CDT us Yosvany Richey MD HEMATOLOGY ORDERABLES Bernie l Result INTERFACE SYSTEM Refer to clinic/hospital department * HCG QUANTITATIVE, BLOOD (02/27/2006 1:02 AM CDT) CHORIONIC GONADOTROPIN, TOTAL <2.0 0.0 - 10.0 mlU/ML INTERFACE SYSTEM Comment: As of 04 at 12:[address] [facility] has changed the methodology for ThCG, and with this change the reference range has changed from 0-5.0 mIU/ml to 0-10.0 mIU/ml. ----- ----- Total HCG levels between 10 mIU/mL and 25 mIU/mL may be indicative of early but need to be correlated with other clinical findings. HCG ranges during normal , as reported by the recovery assistant, are summarized as follows: Gestational Age Expected hCG Values (mIU/ml) 0.2-1 Weeks 5 - 50 1-2 Weeks 50 - 500 2-3 Weeks 100 - 5,000 3-4 Weeks 1,000 - 50,000 5-6 Weeks 10,000 - 100,000 6-8 Weeks 15,000 - 200,000 2-3 Months 10,000 - 100,000 02/27/2006 1:02 AM CDT Yosvany Richey MD CHEMISTRY ORDERABLES Final Result Performing Organization Address [facility] de Phone Number INTERFACE SYSTEM Refer to clinic/hospital department * ETHANOL LEVEL (02/27/2006 1:02 AM CDT) ETHANOL <10 <=10 mg/dL INTERFACE SYSTEM 02/27/2006 1:02 AM CDT Yosvany Richey MD CHEMISTRY ORDERABLES Final Result Performing Organization Address [facility] Phone Number INTERFACE SYSTEM Refer to clinic/hospital department * (ABNORMAL) BASIC METABOLIC PANEL (02/27/2006 1:02 AM CDT) GLUCOSE 125(H) 70 - 110 mg/dL INTERFACE SYSTEM BUN 8(L) 9 - 20 mg/dL INTERFACE SYSTEM CREATININE 0.8 0.7 - 1.5 mg/dL INTERFACE SYSTEM SODIUM 146(H) 136 - 145 mEq/L INTERFACE SYSTEM POTASSIUM 3.8 3.5 - 5.0 mEq/L INTERFACE SYSTEM CHLORIDE 109 95 - 110 mEq/L INTERFACE SYSTEM CO2 25 22 - 32 mmol/l INTERFACE SYSTEM ANION GAP 16 9 - 20 mEq/L INTERFACE SYSTEM OSMOLALITY, CALCULATED 298(H) 275 - 295 mOsm/Kg INTERFACE SYSTEM CALCIUM 10.4 8.4 - 10.5 mg/dL INTERFACE SYSTEM 02/27/2006 1:02 AM CDT Yosvany Richey MD CHEMISTRY ORDERABLES Final Result Performing Organization Address [facility] de Phone Number INTERFACE SYSTEM Refer to clinic/hospital department documented in this encounter Visit Diagnoses Diagnosis Closed fracture of base of skull with subarachnoid, subdural, and extradural hemorrhage, unspecified state of consciousness- Primary documented in this encounter
[2025-03-07 07:31] VITALS: BP 187/121; PULSE 99; RESP 17; TEMP 36.6; O2SAT 98; BMI 41.3
--- NOTE | 2025-03-07 07:31 | PC.NURSE ---
DR. MORLEY NOTIFIED OF PT SYMPTOMS AND SOME SLIGHT RIGHT SIDED FACIAL DROOP. DR. MORLEY WAS ALSO NOTIFIED OF PT BLOOD PRESSURE BEING ELEVATED. PROVIDER STATES IT IS NOT AN ISSUE AT THIS TIME.
--- OUTSIDE RECORDS SUMMARY | 2025-03-07 07:31 | XMS_ITS | Encounter Summary ---
Author Organization [facility] Address [address] [place] [address] Care Team Providers Care Rubbish Collector Name Role Phone Unavailable Primary Care Provider Unavailabl e Encounter Details Date Type Department Care Team (Late st Contact Info) Description 03/06/2003 Outpatient Historical [facility] OBGYN-[address] [address] Genna Brown MD [address] [place] [address] [address] [place] [address] DYSPLASIA OF CERVIX (Primary Dx) Social History Tobacco Use Types Packs/Day Years Used Date Smoking Tobacco: Never Assessed Comments Unknown Sex and Gender Information Value Date Recorded Sex Assigned at Not on file 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
--- OUTSIDE RECORDS SUMMARY | 2025-03-07 07:31 | XMS_ITS | Encounter Summary ---
Author Organization [facility] Address [address] [place] [address] Care Team Providers Care Braille Duplicating Machine Operator Name Role Phone Unavailable Primary Care Provider Unavailabl e Encounter Details Date Type Department Care Team (Late st Contact Info) Description 03/06/2003 Outpatient Historical [facility] FY06 Genna Brown MD [address] [address] DYSPLASIA OF CERVIX (Primary Dx) Social History Tobacco Use Types Packs/Day Years Used Date Smoking Tobacco: Never Assessed Comments Unknown Sex and Gender Information Value Date Recorded Sex Assigned at Not on file 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
--- OUTSIDE RECORDS SUMMARY | 2025-03-07 07:31 | XMS_ITS | Encounter Summary ---
Author Organization [facility] Address [address] [place] [address] Care Team Providers Care Pad Hand Name Role Phone Unavailable Primary Care Provider Unavailabl e Encounter Details Date Type Department Care Team (Late st Contact Info) Description 10/20/2002 Outpatient Historical [facility] OBGYN-[address] [address] Genna Brown MD [address] [place] [address] [address] [place] [address] NONSPEC ABNL PAP SMEAR CERVIX, UNSPEC (Primary Dx); PREG EXAM-PREG UNCONFIRM Social History Tobacco Use Types Packs/Day Years Used Date Smoking Tobacco: Never Assessed Comments Unknown Sex and Gender Information Value Date Recorded Sex Assigned at Not on file 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
--- NOTE | 2025-03-07 07:49 | W.ED.GENADLT ---
HPI - General Adult General: Chief complaint: General Medical Stated complaint: right side of face swollen Time Seen by Provider: 03/07/25 07:32 History of Present Illness: 40-year-old female who presents emergency room with complaint of lower facial drooping. Began suddenly overnight she woke up with it this morning. It affects the lower portion of her face she has no other symptoms no difficulty with vision gait or balance no difficulty with speech. Last known well would have been last night around 10:00 she noticed some facial swelling and the facial weakness in the lower portion of the face this morning. No sparing of the forehead. She did not notice any difference in taste when brushing her teeth this morning. Associated symptoms: Deny chest pain, dyspnea or rash Related Data Home Medications ?Medication ?Instructions ?Recorded ?Confirmed acetaminophen 500 mg tablet 500 mg PO Q6H PRN Pain 02/03/22 03/07/25 metformin 500 mg tablet,extended 500 mg PO BID 03/07/25 03/07/25 release 24 hr Previous Rx's ?Medication ?Instructions ?Recorded metoprolol succinate 25 mg 25 mg PO .q hs #30 tabs 02/09/25 tablet,extended release 24 hr amlodipine 5 mg tablet 5 mg PO DAILY #30 tabs 03/07/25 prednisone 20 mg tablet 60 mg (3 x 20 mg) PO DAILY 7 days 03/07/25 #21 tabs Allergies Allergy/AdvReac Type Severity Reaction Status Date / Time chocolate flavor Allergy Intermediate ALGY-Hives Verified 03/06/25 07:39 amoxicillin Allergy ALGY-Hives Verified 03/06/25 07:39 diphenhydramine (From Allergy ALGY-Hives Verified 03/06/25 07:39 Benadryl) Iodinated Contrast Media Allergy ALGY-Hives Verified 03/06/25 07:39 Penicillins Allergy ALGY-Hives Verified 03/06/25 07:39 Review of Systems Const: Denies: fever(s) or chills Card: Denies: chest pain Resp: Denies: dyspnea GI: Denies: abdominal pain : Denies: dysuria, urinary frequency or urinary urgency Musc: Denies: neck pain or back pain Skin/Breast: Denies: rash PFS ED PFSH: Medical History PTSD (post-traumatic stress disorder) Elevated blood pressure reading Worms in stool Vertigo of central origin Intertriginous dermatitis associated with moisture Vasovagal syncopes Irritable bowel syndrome with diarrhea Allergic rhinitis due to allergen Seizure History of hypertension Obesity, morbid, BMI 40.0-49.9 Prediabetes Abnormal uterine bleeding (AUB) Low grade squamous intraepithelial lesion on cytologic smear of cervix (LGSIL) Surgical History H/O section 1--04/25/[address] Peter Thompson at [facility] in [place], [place] 2-- 03/25/[address] Tristan Mcknight at [facility] in [place], [place] H/O tubal ligation (~03/25/11) Performed at time of section History of cholecystectomy (~07/2009) Laparoscopic. Performed at [facility] in [place], [place] Family History Father Diabetes Hyperlipidemia Hypertension Grandfather No problems noted. Grandmother Hyperlipidemia Paternal grandmother Hypertension Paternal grandmother Diabetes Paternal grandmother Family/Other Family history of thyroid problem Paternal aunt Breast cancer Paternal great aunt Thyroid cancer Lung cancer Throat cancer Other Ovarian cancer Social History Smoking and tobacco/nicotine status: never used tobacco/nicotine Alcohol intake: never Substance/Drug Use: never Additional social history: - Tobacco use: Denies Alcohol use: Denies Drug use: Denies Marital status: Number of children: 2 Current occupational status: unemployed Current gender identity: Female Physical Exam Const: GENERAL APPEARANCE: cooperative ORIENTATION/CONSCIOUSNESS: Yes awake, Yes oriented to person, Yes oriented to place and Yes oriented to time HENMT: COMMON NORMALS: normocephalic, atraumatic and hearing grossly normal bilaterally HEAD & SCALP: normocephalic and atraumatic Resp: COMMON NORMALS: normal respiratory effort, No retractions, No use of accessory muscles and clear to auscultation bilaterally AUSCULTATION: clear to auscultation bilaterally Cardio: COMMON NORMALS: regular rate, regular rhythm and No murmurs present (Cardio) RATE: regular rate RHYTHM: regular rhythm GI: COMMON NORMALS: Soft to palpation and No hepatosplenomegaly present AUSCULTATION: Yes normoactive bowel sounds PALPATION: Yes Soft to palpation, No Tenderness to palpation present (GI), No Guarding due to palpation present (GI) and Yes No hepatosplenomegaly present Extremity: COMMON NORMALS: normal to inspection, capillary refill normal, no clubbing, cyanosis or edema, no calf tenderness and no pedal edema Neuro: SENSORIUM/ORIENTATION: Yes oriented to person, Yes oriented to place and Yes oriented to time OTHER: Patient reports normal sensation to the face bilaterally. Loss of motor function in the lower facial nerve distribution Skin: COMMON NORMALS: no rashes or lesions noted GENERAL SKIN EXAM: no rashes or lesions noted Course Vital Signs: Vital signs: Vital Signs Temperature 97.9 F 03/07/25 07:31 Pulse Rate 109 H 03/07/25 09:57 Respiratory Rate 17 03/07/25 07:31 Blood Pressure 161/119 03/07/25 09:57 Pulse Oximetry 96 03/07/25 09:57 Oxygen Delivery Me thod Room Air 03/07/25 08:30 MDM - General Adult Medical Decision Making Patient has lower facial nerve paralysis with motor only she has no sensory loss branches 3 4 and 5. There is sparing of the forehead however. 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 However since there is sparing of the forehead will call as a stroke alert for now. The remainder of her stroke exam is completely normal she has a stroke score of 2 she is outside of the window for any paralytics since onset of her symptoms were 10 hours ago. The time all of her workup was done she started to have inclusion of her forehead as well now she was losing the ability to raise her eyebrow wrinkle her forehead. 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 Patient also encouraged to take her blood pressure medications and review her blood pressure next Asser's visit should be within the next 7 to 10 days. Medical Records I reviewed the patient's medical records. Lab Data I reviewed the patient's lab results. 03/07/25 08:24 03/07/25 08:[address] 03/07/25 08:06 IMPRESSION: 1. No acute intracranial hemorrhage or edema. 2. Stable noncontrast head CT since 08/01/2020. Notified Boby Miramontes DO at 03/07/2025 8:23 AM. Laboratory Results WBC 12.46 10^3/uL (3.29-11.43) H 03/07/25 08:24 RBC 5.10 10^6/uL (3.85-5.65) 03/07/25 08:24 Hgb 13.70 g/dL (11.27-16.99) 03/07/25 08:24 Hct 42.1 % (36-47) 03/07/25 08:24 MCV 82.5 fl (85-98) L 03/07/25 08:24 MCH 26.9 pg (27-33) L 03/07/25 08:24 MCHC 32.5 g/dL (30-55) 03/07/25 08:24 RDW 14.1 % (12.1-15.1) 03/07/25 08:24 Plt Count 463 10^3/cmm (157-399) H 03/07/25 08:24 MPV 9.2 fL (7.4-10.4) 03/07/25 08:24 Neut % (Auto) 66.6 % 03/07/25 08:24 Lymph % (Auto) 21.1 % 03/07/25 08:24 Burnett % (Auto) 8.2 % 03/07/25 08:24 Eos % (Auto) 2.7 % 03/07/25 08:24 Baso % (Auto) 0.8 % 03/07/25 08:24 Neut # (Auto) 8.30 10^3/uL (1.8-7.7) H 03/07/25 08:24 Lymph # (Auto) 2.6 10^3/uL (0.8-4.8) 03/07/25 08:24 Burnett # (Auto) 1.0 10^3/uL (0.2-0.9) H 03/07/25 08:24 Eos # (Auto) 0.3 10^3/uL (0.0-0.8) 03/07/25 08:24 Baso # (Auto) 0.1 10^3/uL (0.0-0.1) 03/07/25 08:24 Nucleated RBC % (auto) 0 % 03/07/25 08:24 Nucleated RBCs # 0.0 /100WBC 03/07/25 08:24 PT 12.50 SECONDS (12.1-14.9) 03/07/25 08:24 INR 0.88 (0.8-1.2) 03/07/25 08:24 APTT 27.5 SECONDS (23.9-36.7) 03/07/25 08:24 Sodium 140 mmol/L (136-145) 03/07/25 08:24 Potassium 3.5 mmol/L (3.5-5.1) 03/07/25 08:24 Chloride 100 mmol/L (98-107) 03/07/25 08:24 Carbon Dioxide 27 mmol/L (22-29) 03/07/25 08:24 Anion Gap 16.5 (5-19) 03/07/25 08:24 BUN 10 mg/dL (6-20) 03/07/25 08:24 Creatinine 0.8 mg/dL (0.5-0.9) 03/07/25 08:24 GFR Calculation 79.4 mL/min (90-130) L 03/07/25 08:24 Glucose 127 mg/dL (65-115) H 03/07/25 08:24 POC Glucose 120 mg/dL (70-110) H 03/07/25 08:12 Calculated Osmolality 291 mOsm/kg (285-295) 03/07/25 08:24 Calcium 9.4 mg/dL (8.5-10.5) 03/07/25 08:24 Total Bilirubin 0.3 mg/dL (0.15-1.2) 03/07/25 08:24 AST 19 U/L (0-32) 03/07/25 08:24 ALT 27 U/L (0-33) 03/07/25 08:24 Alkaline Phosphatase 97 U/L (35-105) 03/07/25 08:24 Total Protein 8.2 g/dL (6.6-8.7) 03/07/25 08:24 Albumin 4.7 g/dL (3.5-5.2) 03/07/25 08:24 Globulin 3.5 g/dL (1.3-4.6) 03/07/25 08:24 Urine Color Yellow (Yellow) 03/07/25 09:38 Urine Appearance Clear (CLEAR) 03/07/25 09:38 Urine pH 7.0 (5-7) 03/07/25 09:38 Ur Specific Jefferson 1.012 (1.005-1.030) 03/07/25 09:38 Urine Protein Negative (Negative) 03/07/25 09:38 Urine Glucose (UA) Negative (Normal) 03/07/25 09:38 Urine Ketones Negative (Negative) 03/07/25 09:38 Urine Blood 1+ (Negative) A 03/07/25 09:38 Urine Nitrate Negative (Negative) 03/07/25 09:38 Urine Bilirubin Negative (Negative) 03/07/25 09:38 Urine Urobilinogen 0.2 mg/dL (Negative) 03/07/25 09:38 Ur Leukocyte Esterase 1+ (Negative) A 03/07/25 09:38 Urine RBC 5-10 /hpf (0-2) H 03/07/25 09:38 Urine WBC 0-4 /hpf (0-5) H 03/07/25 09:38 Ur Squamous Epith Cells 5-10 /hpf (0-5) H 03/07/25 09:38 Amorphous Sediment Not Reportable 03/07/25 09:38 Urine Bacteria None /hpf (NONE) 03/07/25 09:38 Urine Mucus None /hpf 03/07/25 09:38 Urine Opiates Screen Negative ng/mL (Negative) 03/07/25 09:38 Ur Barbiturates Screen Negative ng/mL (Negative) 03/07/25 09:38 Ur Phencyclidine Scrn Negative ng/mL (Negative) 03/07/25 09:38 Ur Amphetamines Screen Negative ng/mL (Negative) 03/07/25 09:38 U Benzodiazepines Scrn Negative ng/mL (Negative) 03/07/25 09:38 Urine Cocaine Screen Negative ng/mL (Negative) 03/07/25 09:38 U Marijuana (THC) Screen Negative ng/mL (Negative) 03/07/25 09:38 All radiology interpretation(s) finalized by discharge Discharge Plan Discharge Patient Disposition: Home Clinical Impression: Vasquez's paralysis, Hypertension Condition: Stable Prescriptions: New prednisone 20 mg tablet 60 mg PO DAILY 7 Days Qty: 21 0RF amlodipine 5 mg tablet 5 mg PO DAILY Qty: 30 0RF No Action metoprolol succinate 25 mg tablet extended release 24 hr 25 mg PO .q hs Qty: 30 0RF acetaminophen [Tylenol Ex Str Rapid Release] 500 mg Tablet 500 mg PO Q6H PRN (Reason: Pain) metformin 500 mg tablet extended release 24 hr 500 mg PO BID Rx Instructions: Take 1 tab daily for 7 days, then increase to twice daily, Take with food Discharge Orders: Discharge ED (Routine); Ordered 03/07/25 Ordered By: Boby Miramontes Referrals: Mame Vásquez DO [Primary Care Provider, Family Practice] Discharge Diet: Usual diet Discharge Activity: Resume usual activity Patient Instructions: Vasquez Palsy (ED), Opioid Safety, Pain Management, Patient Portal & Sergio Instructions Activity Restrictions/Additional Instructions: Thank you for choosing [facility] for your healthcare needs today. It is very important that you follow up as instructed or that you return to the Emergency Department should you have concerns or if your condition changes or worsens in any way. Emergency department visits are focused on emergent conditions, in some cases you may require further evaluation on an outpatient basis. You are seen with complaint of right-sided facial droop. CT of your head was negative other than the lower facial droop the remainder of your exam was unremarkable. Discussed with our neurologist. At this point we feel this is likely an early Vasquez's palsy recommend steroids. Also recommend you follow-up with your primary care doctor regarding your blood pressure. Did give you initial blood pressure medication of amlodipine 5 mg once daily. (Please note that included in your discharge packet is information concerning opioid safety and pain management. This information is given to all patients were discharged from the ER regardless of their discharge diagnosis or the medicines they usually take or are prescribed.) Print Language: Kiswahili Coding Level of Care Code ED Post Secondary Professional for Ramona Morse NIH stroke score NIHSS Level Of Consciousness - 1a: 0 Level Of Consciousness Questions - 1b: Both Correct Level Of Consciousness Commands - 1c: Both Correct Best Gaze - 2: Normal Visual Martínez - 3: No Visual Loss Facial Palsy - 4: Partial Paralysis Motor Arm Right - 5: No Drift Motor Arm Left - 5: No Drift Motor Leg Right - 6: No Drift Motor Leg Left - 6: No Drift Limb Ataxia - 7: Absent Sensory - 8: Normal Best Language - 9: No Aphasia Dysarthia - 10: Normal Extinction And Inattention - 11: 0 Score Total Score: 2
--- NOTE | 2025-03-07 08:06 | ECG_ITS ---
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 Measurements Intervals [place] Rate: 95 P: 35 NH: 160 QRS: -32 QRSD: 86 T: 20 QT: 362 QTc: 456 Interpretive Statements SINUS RHYTHM LEFT AXIS DEVIATION [QRS AXIS < -30] POSSIBLE RIGHT VENTRICULAR CONDUCTION DELAY [RSR (QR) IN V1/V2] Compared to ECG 08/01/2020 18:52:19 Left-axis deviation now present Indeterminate axis no longer present Incomplete right bundle-branch block no longer present Electronically Signed On 03-07-2025 23:50:30 CDT by Dwayne Bender M.D. [email or web address]
--- NOTE | 2025-03-07 08:06 | CT_ITS ---
WS: [id number] CT HEAD NONCONTRAST HISTORY: Symptoms of acute stroke, right-sided facial swelling. TECHNIQUE: Contiguous axial imaging performed through the brain. Bone and soft tissue windows. Sagittal and coronal reformats reviewed. All CT scans at [facility] use at least one of these dose optimization techniques: automated exposure control; mA and/or kV adjustment per patient size (includes targeted exams where dose is matched to clinical indication); or iterative reconstruction. DLP: 1069.04 mGy COMPARISON: 08/01/2020 No acute intracranial hemorrhage, midline shift or mass effect. No atrophy or prior infarcts or herniation. Ventricles: Normal size with no hydrocephalus. Ventricles are small caliber and slitlike but similar to 08/01/2020. This is not a new finding. No inferior displacement of cerebellar tonsils. Fourth ventricle is widely patent. Empty sella turcica. Paranasal sinuses: Small amount of mucoperiosteal thickening in the posterior ethmoid air cells. No air-fluid levels in the visualized sinuses. Mastoid air cells: Well pneumatized. Calvarium and scalp: Skull is intact with no soft tissue edema or swelling. CT/CT head thrombolytic 27798 IMPRESSION: 1. No acute intracranial hemorrhage or edema. 2. Stable noncontrast head CT since 08/01/2020. Notified Boby Miramontes DO at 03/07/2025 8:23 AM.
[2025-03-07] MEDS: hyDRALAzine 20 mg/mL INJ 1 mL 10 MG IVP (08:26)
[2025-03-07 08:30] VITALS: BP 171/125; PULSE 103; O2SAT 100
[2025-03-07 08:31] LABS: Hematocrit 42.1 % (36-47); Hemoglobin 13.70 g/dL (11.27-16.99); Mean Corpuscular HGB Conc 32.5 g/dL (30-55); Mean Corpuscular Hemoglobin 26.9 pg (27-33); Mean Corpuscular Volume 82.5 fl (85-98); Nucleated Red Blood Cells % 0 %; Platelet Count 463 10^3/cmm (157-399); Red Blood Count 5.10 10^6/uL (3.85-5.65); White Blood Count 12.46 10^3/uL (3.29-11.43)
[2025-03-07 08:51] LABS: INR 0.88 (0.8-1.2); Partial Thromboplastin Time 27.5 SECONDS (23.9-36.7); Prothrombin Time 12.50 SECONDS (12.1-14.9)
[2025-03-07 08:56] LABS: Alanine Aminotransferase 27 U/L (0-33); Albumin Level 4.7 g/dL (3.5-5.2); Alkaline Phosphatase 97 U/L (35-105); Anion Gap 16.5 (5-19); Aspartate Amino Transferase 19 U/L (0-32); Blood Urea Nitrogen 10 mg/dL (6-20); Calcium 9.4 mg/dL (8.5-10.5); Carbon Dioxide 27 mmol/L (22-29); Chloride 100 mmol/L (98-107); Creatinine Clr Calc Pharmacy 133.5834; Globulin 3.5 g/dL (1.3-4.6); Glucose 127 mg/dL (65-115); Osmolality Calculated 291 mOsm/kg (285-295); Potassium 3.5 mmol/L (3.5-5.1); Sodium 140 mmol/L (136-145); Total Protein 8.2 g/dL (6.6-8.7)
--- NOTE | 2025-03-07 08:58 | PC.PHAR ---
Patient has not started taking the Metformin or the Metoprolol .
[2025-03-07 09:57] VITALS: BP 161/119; PULSE 109; O2SAT 96
[2025-03-07 10:01] LABS: Glucose Urine UA Negative (Normal); Nitrate Urine Negative (Negative); Specific Gravity, Urine 1.012 (1.005-1.030)
[2025-03-07 10:08] LABS: PCP Screen Urine Negative (Negative)
[2025-03-07 10:12] LABS: Add Urine Microscopic? YES
== END 2025-03-07 10:00 | disposition home or self-care (01) ==
PROVIDERS: Emergency Provider Family Medicine; PCP Family Medicine
DX: G51.0 Bell's palsy (principal); I10 Essential (primary) hypertension; Z79.84 Long term (current) use of oral hypoglycemic drugs
CPT/HCPCS: 36415; 36416; 70450; 80053; 80306; 81001; 82962; 85025; 85610; 85730; 93005; 96374; 99285; J0360

== ENCOUNTER 2025-05-31 18:13 | Emergency (ER) | payer BC, MEDICAID, SELFPAY ==
--- OUTSIDE RECORDS SUMMARY | 2025-05-31 18:27 | XMS_ITS | Encounter Summary ---
Author Organization [facility] Address [address] [place] [address] Care Team Providers Care Manager Data Warehouse Name Role Phone Unavailable Primary Care Provider Unavailabl e Encounter Details Date Type Department Care Team (Late st Contact Info) Description 03/06/2003 Outpatient Historical [facility] 06 Genna Brown MD [address] [address] DYSPLASIA OF CERVIX (Primary Dx) Social History Tobacco Use Types Packs/Day Years Used Date Smoking Tobacco: Never Assessed Comments Unknown Sex and Gender Information Value Date Recorded Sex Assigned at Not on file 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
--- OUTSIDE RECORDS SUMMARY | 2025-05-31 18:27 | XMS_ITS | Encounter Summary ---
Author Organization [facility] Address [address] [place] [address] Care Team Providers Care Vehicle Monitor Technician Name Role Phone Unavailable Primary Care Provider Unavailabl e Encounter Details Date Type Department Care Team (Late st Contact Info) Description 10/20/2002 Outpatient Historical [facility] [address] 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
--- OUTSIDE RECORDS SUMMARY | 2025-05-31 18:27 | XMS_ITS | Encounter Summary ---
Author Organization [employer] [facility] Address [address] [place] [address] Care Team Providers Care Turbine Blade Assembler Name Role Phone Unavailable Primary Care Provider Unavailabl e Encounter Details Date Type Department Care Team (Late st Contact Info) Description 02/27/2006 Inpatient Historical HIS IN BED Bang Luke MD [address] [place] [id number] Closed Skull Base Fx/Menin Hem (CMS/HCC) (Primary Dx) Social History Tobacco Use Types Packs/Day Years Used Date Smoking Tobacco: Never Assessed Comments Unknown Sex and Gender Information Value Date Recorded Sex Assigned at Not on file 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 Gender Identity Not on file Sexual Orientation [...] CHEMISTRY ORDERABLES Final Result Performing Organization Address [facility] Phone Number INTERFACE SYSTEM Refer to clinic/hospital [...] ORDERABLES Final Res ult Performing Organization Address [facility] de Phone Number INTERFACE SYSTEM Refer to [...] Goal INR 3.0; range 2.5 - 3.5 POST-OH Goal INR 2.5; range 2.0 - 3.0 or Goal 3.0; range 2.5 - 3.5 Atrial Fibrillation Goal INR 2.5; range 2.0 - 3.0 Ischemic Stroke Goal INR 2.5; range 2.0 - 3.0 For additional information see Guidelines for Anticoagulation available from the pharmacy Yuki Wells 02/27/2006 1:02 AM CDT us Yosvany [...] Comment: As of 04 at 12:00 p.m. [facility] has changed the methodology for ThCG, and with this change the reference range has changed from 0-5.0 mIU/ml to 0-10.0 mIU/ml. ----- ----- Total HCG levels between 10 mIU/mL and 25 mIU/mL may be indicative of early but need to be correlated with other clinical findings. HCG ranges during normal , as reported by the bit bender, are summarized as follows: Gestational Age Expected hCG Values (mIU/ml) 0.2-1 Weeks 5 - 50 1-2 Weeks 50 - 500 2-3 Weeks 100 - 5,000 3-4 Weeks 1,000 - 50,000 5-6 Weeks 10,000 - 100,000 6-8 Weeks 15,000 - 200,000 2-3 Months 10,000 - 100,000 02/27/2006 1:02 AM CDT Yosvany Richey MD CHEMISTRY ORDERABLES Final Result Performing Organization Address [facility] de Phone Number INTERFACE SYSTEM Refer to clinic/hospital department * ETHANOL LEVEL (02/27/2006 1:02 AM CDT) ETHANOL <10 <=10 mg/dL INTERFACE SYSTEM 02/27/2006 1:02 AM CDT Yosvany Richey MD CHEMISTRY ORDERABLES Final Result Performing Organization Address [facility] Phone Number INTERFACE SYSTEM Refer to clinic/hospital [...] CHEMISTRY ORDERABLES Final Result Performing Organization Address [facility] de Phone Number INTERFACE SYSTEM Refer to clinic/hospital department documented in this encounter Visit Diagnoses Diagnosis Closed fracture of base of skull with subarachnoid, subdural, and extradural hemorrhage, unspecified state of consciousness- Primary documented in this encounter
--- OUTSIDE RECORDS SUMMARY | 2025-05-31 18:27 | XMS_ITS | Clinical Summary ---
Author Organization [facility] Address [address] 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
--- OUTSIDE RECORDS SUMMARY | 2025-05-31 18:27 | XMS_ITS | Encounter Summary ---
Author Organization [facility] Address [address] [place] [address] Care Team Providers Care Passenger Coach Driver Name Role Phone Unavailable Primary Care Provider Unavailabl e Encounter Details Date Type Department Care Team (Late st Contact Info) Description 10/20/2002 Outpatient Historical [facility] OBGYN-[address] [address] Genna Brown MD [address] [place] [address] [address] [place] [address] NONSPEC ABNL PAP SMEAR CERVIX, UNSPEC (Primary Dx); PREG EXAM-PREG UNCONFIRM Social History Tobacco Use Types Packs/Day Years Used Date Smoking Tobacco: Never Assessed Comments Unknown Sex and Gender Information Value Date Recorded Sex Assigned at Not on file 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
--- OUTSIDE RECORDS SUMMARY | 2025-05-31 18:27 | XMS_ITS | Encounter Summary ---
Author Organization [facility] Address [address] [place] [address] Care Team Providers Care Qualifications Examiner Name Role Phone Unavailable Primary Care Provider Unavailabl e Encounter Details Date Type Department Care Team (Late st Contact Info) Description 03/06/2003 Outpatient Historical [facility] OBGYN-[address] [address] Genna Brown MD [address] [place] [address] [address] [place] [address] DYSPLASIA OF CERVIX (Primary Dx) Social History Tobacco Use Types Packs/Day Years Used Date Smoking Tobacco: Never Assessed Comments Unknown Sex and Gender Information Value Date Recorded Sex Assigned at Not on file 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
[2025-05-31 18:44] VITALS: BP 189/102; PULSE 79; RESP 17; TEMP 36.7; O2SAT 97; BMI 39.9
--- NOTE | 2025-05-31 20:12 | W.ED.DENTAL ---
HPI - Dental/Oral General: Chief complaint: Dental/Oral Stated complaint: Tooth pain Bottom R side Time Seen by Provider: 05/31/25 19:42 History of Present Illness: Patient is 40-year-old female that presents to ED due to right first molar lower jaw pain. She was at the dentist today. They are attempting to pull this fractured tooth. Dentist was unable to remove this, and therefore sent antibiotics to the pharmacy, and asked her to return in a couple of days. Patient has increased pain. She is able to open her mouth. No fevers. She was unable to fill her antibiotics. She is unaware what the antibiotics are. She is allergic to penicillin. Associated symptoms: Denies fever(s) or odynophagia Related Data Home Medications ?Medication ?Instructions ?Recorded ?Confirmed acetaminophen 500 mg tablet 500 mg PO Q6H PRN Pain 02/03/22 05/10/25 metformin 500 mg tablet,extended 500 mg PO BID 03/07/25 05/10/25 release 24 hr Previous Rx's ?Medication ?Instructions ?Recorded metoprolol succinate 25 mg 25 mg PO .q hs #30 tabs 02/09/25 tablet,extended release 24 hr amlodipine 5 mg tablet 5 mg PO DAILY #30 tabs 03/07/25 clindamycin HCl 300 mg capsule 300 mg PO Q8H 10 days #30 caps 05/31/25 (Cleocin HCl) Allergies Allergy/AdvReac Type Severity Reaction Status Date / Time chocolate flavor Allergy Intermediate ALGY-Hives Verified 05/10/25 08:34 amoxicillin Allergy ALGY-Hives Verified 05/10/25 08:34 diphenhydramine (From Allergy ALGY-Hives Verified 05/10/25 08:34 Benadryl) Iodinated Contrast Media Allergy ALGY-Hives Verified 05/10/25 08:34 Penicillins Allergy ALGY-Hives Verified 05/10/25 08:34 Review of Systems Const: Denies: fever(s), chills, body aches, fatigue or diaphoresis Eyes: Denies: change in vision or eye discharge ENMT: Denies: throat pain, odynophagia or hoarseness Card: Denies: chest pain, palpitations, irregular heart rhythm or swelling of feet/ankles Resp: Denies: dyspnea, productive cough, non-productive cough or wheezing GI: Reports: constipation, change in stool character and hematochezia; Denies: abdominal pain, nausea, vomiting, diarrhea or melena Musc: Reports: joint pain; Denies: neck pain or back pain Skin/Breast: Denies: rash or pruritus Neuro: Denies: headache(s) or numbness in extremities Psych: Denies: anxiety or depression PFS ED PFSH: Medical History (Updated 05/31/25 @ 20:16 by CHARLOTTE Dickson) Bleeding external hemorrhoids Slow transit constipation PTSD (post-traumatic stress disorder) Elevated blood pressure reading Worms in stool Vertigo of central origin Intertriginous dermatitis associated with moisture Vasovagal syncopes Irritable bowel syndrome with diarrhea Allergic rhinitis due to allergen Seizure History of hypertension Obesity, morbid, BMI 40.0-49.9 Prediabetes Abnormal uterine bleeding (AUB) Low grade squamous intraepithelial lesion on cytologic smear of cervix (LGSIL) Surgical History H/O section 1--04/25/[address] Peter Thompson at [facility] in [place], [place] 2-- 03/25/[address] Tristan Mcknight at [facility] in [place], [place] H/O tubal ligation (~03/25/11) Performed at time of section History of cholecystectomy (~07/2009) Laparoscopic. Performed at [facility] in [place], [place] Family History Father Diabetes Hyperlipidemia Hypertension Grandfather No problems noted. Grandmother Hyperlipidemia Paternal grandmother Hypertension Paternal grandmother Diabetes Paternal grandmother Family/Other Family history of thyroid problem Paternal aunt Breast cancer Paternal great aunt Thyroid cancer Lung cancer Throat cancer Other Ovarian cancer Social History Smoking and tobacco/nicotine status: never used tobacco/nicotine Alcohol intake: never Substance/Drug Use: never Additional social history: - Tobacco use: Denies Alcohol use: Denies Drug use: Denies Marital status: Number of children: 2 Current occupational status: unemployed Current gender identity: Female Physical Exam Const: COMMON NORMALS: no acute distress and healthy appearing HENMT: COMMON NORMALS: atraumatic, hearing grossly normal bilaterally, moist oral mucous membranes and oropharynx normal HEAD & SCALP: atraumatic TEETH & GINGIVA IMAGES:  1. Fractured painful tooth with localized swelling 2. Absent Eye: COMMON NORMALS: negative for Equal, round and reactive pupils present and negative for EOMs intact bilaterally PUPIL: No Equal, round and reactive pupils present Lymph: LYMPHATIC: no lymphadenopathy noted Resp: COMMON NORMALS: normal respiratory effort and clear to auscultation bilaterally AUSCULTATION: clear to auscultation bilaterally Cardio: COMMON NORMALS: regular rate, regular rhythm and No murmurs present (Cardio) RATE: regular rate RHYTHM: regular rhythm GI: COMMON NORMALS: Normal to inspection, nondistended, normoactive bowel sounds present, Soft to palpation and non-tender AUSCULTATION: Yes normoactive bowel sounds PALPATION: Yes Soft to palpation : COMMON NORMALS: Yes no CVA tenderness BLADDER/KIDNEY EXAM: Yes no CVA tenderness Back/Pelvis: COMMON NORMALS: no CVA tenderness Neuro: COMMON NORMALS: gait normal Course Vital Signs: Vital signs: Vital Signs Temperature 98.1 F 05/31/25 18:44 Pulse Rate 79 05/31/25 18:44 Respiratory Rate 17 05/31/25 18:44 Blood Pressure 189/102 05/31/25 18:44 Pulse Oximetry 97 05/31/25 18:44 Oxygen Delivery Me thod Room Air 05/31/25 18:44 MDM - Dental/Oral Medical Decision Making Patient is a 40-year-old female that reports to the emergency room with jaw pain, and dental pain, after attempting to have her fractured tooth of her first molar, lower jaw, removed. Apparently according to patient this was unable to be removed as per dentist, she was placed on antibiotics, that she was unable to fill, and sent home. She states she begged the dentist to remove this anyway. She was unable to get to the pharmacy to obtain her antibiotics. She is come to the emergency room with severe pain. I discussed with patient we do not have dental services on the ER, however I am sympathetic to what is going on. I will give her clindamycin here x 1, and send clindamycin to the pharmacy to ensure that she has her medication tomorrow. We have also discussed Tylenol dosages, she can have up to 3 g / 24 hours, and to be taken with ibuprofen 800 mg 3 times daily. Medical Records I reviewed the patient's medical records. No radiology studies performed this visit Discharge Plan Discharge Patient Disposition: Home Clinical Impression: Toothache Fracture of tooth Qualifiers: Encounter type: initial encounter Fracture type: open Qualified Code(s): S02.5XXB - Fracture of tooth (traumatic), initial encounter for open fracture Condition: Stable Prescriptions: New clindamycin HCl [Cleocin HCl] 300 mg capsule 300 mg PO Q8H 10 Days Qty: 30 0RF No Action metoprolol succinate 25 mg tablet extended release 24 hr 25 mg PO .q hs Qty: 30 0RF acetaminophen [Tylenol Ex Str Rapid Release] 500 mg Tablet 500 mg PO Q6H PRN (Reason: Pain) metformin 500 mg tablet extended release 24 hr 500 mg PO BID Rx Instructions: Take 1 tab daily for 7 days, then increase to twice daily, Take with food amlodipine 5 mg tablet 5 mg PO DAILY Qty: 30 0RF Discharge Orders: Discharge ED (Routine); Ordered 05/31/25 Ordered By: Dione Hennessy Referrals: Mame Vásquez DO [Primary Care Provider, Family Practice] Discharge Diet: Usual diet Discharge Activity: Resume usual activity Patient Instructions: Toothache (ED), Patient Portal & Sergio Instructions Activity Restrictions/Additional Instructions: - Ice pack to your jaw will help - We discussed ibuprofen: You have 800 mg you can take up to 3 times a day. Tylenol: Up to 3000 mg / 24 hours. It does help to take these 2 medications together. - At the pharmacy: Clindamycin. Take 3 times a day. Take probiotic or eat active culture yogurt to avoid infectious diarrhea - We discussed: Calling a dentist to have this tooth removed. I do feel sympathetic to what is going on with you today - Return to ED if you cannot open your mouth, have a fever greater than 100.4 ?F Thank you for choosing [facility] for your healthcare needs today. You have been screened and evaluated and felt safe for discharge. Health conditions do change or evolve sometimes and as such it is important that you follow up with your Primary Doctor to be re checked, 3-5 days is a general good time frame for follow up. You are always welcome to return to the ED for re assessment if your symptoms are worsening or you have new concerns Print Language: Polish Coding Level of Care Code ED Boilermaker for Ramona Morse
[2025-05-31] MEDS: HYDROcodone-acetaminophen 10-325 mg Tablet 1 TAB PO (20:25)
== END 2025-05-31 20:27 | disposition home or self-care (01) ==
PROVIDERS: Emergency Provider Physician Assistant; PCP Family Medicine
DX: S02.5XXB Fracture of tooth (traumatic), initial encounter for open fracture (principal); K08.89 Other specified disorders of teeth and supporting structures; Z79.84 Long term (current) use of oral hypoglycemic drugs; I10 Essential (primary) hypertension; X58.XXXA Exposure to other specified factors, initial encounter
CPT/HCPCS: 99283; J9999